=== PATIENT | female | born 1930 | race Caucasian/White ===

== ENCOUNTER 2017-06-08 22:18 | Emergency (ER) | payer OTHER, MEDICARE ==
[2017-06-08] MEDS ORDERED: NA CHLORIDE 0.9% 1,000 ML ONE (23:21)
[2017-06-08] MEDS ORDERED: ONDANSETRON 4 MG/2 ML VIAL ONE (23:21)
[2017-06-08 23:32] LABS: Absolute Lymphocytes (CBC) 0.5 K/uL (0.7-4.9); Absolute Monocytes 0.8 K/uL (0.1-1.3); Absolute Neutrophil 7.1 K/uL (1.8-8.0); Basophils % 0.2 % (0-1.3); Eosinophils % 4.5 % (0-4.4); Hematocrit 34.7 % (36.0-45.0); MCH 30.3 pg (27.0-35.0); MCV 91.3 fL (80-100); Monocytes % 9.4 % (3.3-12.3)
[2017-06-08 23:47] LABS: Bicarbonate 25 mEq/L (21-31); Glucose Level 96 mg/dL (65-120); Lipase 16 U/L (22-51); Potassium 3.7 mEq/L (3.6-5.0); Sodium Level 132 mEq/L (135-145)
[2017-06-08 23:53] LABS: ALT/SGPT 13 IU/L (10-60); AST/SGOT 21 IU/L (10-42); Albumin 3.9 g/dL (3.2-5.5); Alkaline Phosphatase 49 IU/L (42-121); Amylase Level 21 U/L (28-100); BUN Blood Urea Nitrogen 15 mg/dL (6-20); Bilirubin Direct 0.1 mg/dL (0-0.2); Bilirubin Total 0.8 mg/dL (0.3-1.2); Protein, Total 6.9 g/dL (6.0-8.3)
--- NOTE | 2017-06-09 01:14 | ER ---
Nurse's Notes [facility] Name: Jaquelin Chiu Age: 87 yrs Sex: Female : 1930 Arrival Date: 06/08/2017 Time: 22:19 Bed 14 Private MD: Jose Vera H Diagnosis: Nausea;Diarrhea, unspecified Presentation: 06/08 22:51 Presenting complaint: Patient states: she has been having N/V/D since 0800 this am. aa1 Reports she also finished taking a course of Levaquin today for a UTI. Denies pain. Transition of care: patient was not received from another setting of care. Onset of symptoms was June 08, 2017 at 08:00. Care prior to arrival: None. 22:51 Method Of Arrival: Ambulatory aa1 22:51 Acuity: KALLI 3 aa1 Historical: - Allergies: 22:57 PENICILLINS; aa1 - Home Meds: 22:57 amlodipine 5 mg tab 1 tab once daily [Active]; aspirin 81 mg Oral TbEC 1 tab once daily aa1 [Active]; Benefiber Sugar Free (dextrin) 1 gram Oral chew twice a day [Active]; Caltrate 600 + D 600 mg (1,500 mg)-800 unit Oral chew twice a day [Active]; carvedilol 25 mg Oral tab 1 tab 2 times per day [Active]; docusate sodium 100 mg Oral cap 1 cap 2 times per day [Active]; Flonase 50 mcg/actuation Nasal spsn 1 spray 2 times per day [Active]; isosorbide mononitrate 60 mg Oral Tb24 1 tab once daily [Active]; Lantus 100 unit/mL Sub-Q soln 25 unit twice a day [Active]; metformin 1,000 mg Oral tab 1 tab 2 times per day [Active]; Miralax 17 gram Oral pwpk twice a day [Active]; Ocuvite 910-15-5-150 eh-mkth-fy-mg Oral cap daily [Active]; omeprazole 40 mg Oral cpDR 1 cap once daily [Active]; potassium chloride 10 mEq Oral cpER 1 cap once daily [Active]; Probiotic Oral daily [Active]; simvastatin 20 mg Oral tab 1 tab nightly [Active]; Systane Vitamin [id number] on-bg-kc-unit Oral cap [Active]; valsartan hydrochlorithiazide 320 mg - 12.5 mg daily [Active]; Vitamin B-12 1,000 mcg Oral tab daily [Active]; Vitamin C 1,000 mg Oral TbER daily [Active]; - PMHx: 22:57 constipation; Diabetes - IDDM; High Cholesterol; Hypertension; aa1 - PSHx: 22:57 Tonsillectomy; Modified Mastectomy Left; Appendectomy; Cholecystectomy; Hysterectomy; aa1 Bilateral Total Knee; Laminectomy; - Immunization history:: Pneumococcal vaccine is up to date, Flu vaccine is up to date. - Social history:: Smoking status: Patient/guardian denies using tobacco, never smoked. Screenin:50 Abuse screen: Denies threats or abuse. Denies injuries from another. Nutritional aa1 screening: No deficits noted. Tuberculosis screening: No symptoms or risk factors identified. Fall Risk None identified. Assessment: 22:50 General: Appears in no apparent distress. comfortable, Behavior is calm, cooperative, aa1 appropriate for age. Pain: Denies pain. Neuro: Level of Consciousness is awake, alert, obeys commands, Oriented to person, place, time, situation, Moves all extremities. Full function Gait is steady, Speech is normal. Cardiovascular: Heart tones S1 S2 present Rhythm is regular. Respiratory: Airway is patent Respiratory effort is even, unlabored, Respiratory pattern is regular, symmetrical. GI: Abdomen is non-distended, Bowel sounds present X 4 quads. Abd is soft and non tender X 4 quads. Reports diarrhea, nausea, vomiting. : No signs and/or symptoms were reported regarding the genitourinary system. EENT: No signs and/or symptoms were reported regarding the EENT system. Derm: Skin is intact, is healthy with good turgor, Skin is pink, warm \T\ dry. Musculoskeletal: Circulation, motion, and sensation intact. Capillary refill < 3 seconds. 06/09 00:41 Reassessment: Patient appears in no apparent distress at this time. Patient and/or aa1 family updated on plan of care and expected duration. Pain level reassessed. Patient is alert, oriented x 3, equal unlabored respirations, skin warm/dry/pink. Awaiting provider reassessment. 01:28 Reassessment: Patient appears in no apparent distress at this time. Patient is alert, aa1 oriented x 3, equal unlabored respirations, skin warm/dry/pink. Discussed d/c \T\ f/u instructions with pt; denies questions or concerns at this time Patient denies pain at this time. Patient states feeling better. Vital Signs: 06/08 22:45 BP 129 / 61; Pulse 77; Resp 18; Temp 99.4(O); Pulse Ox 95% on R/A; Weight 87.54 kg; aa1 Height 5 ft. 5 in. (165.10 cm); Pain 0/10; 23:37 BP 148 / 59; Pulse 77; Resp 20; Pulse Ox 95% on R/A; Pain 0/10; aa1 06/09 00:30 BP 154 / 54; Pulse 74; Resp 20; Pulse Ox 95% on R/A; Pain 0/10; aa1 01:28 BP 133 / 73; Pulse 77; Resp 18; Temp 98.9; Pulse Ox 96% on R/A; Pain 0/10; aa1 06/08 22:45 Body Mass Index 32.12 (87.54 kg, 165.10 cm) aa1 ED Course: 06/08 22:19 Patient arrived in ED. am2 22:19 Jose Vera MD is Private Physician. am2 22:39 [facility] jr8 22:39 Kobi Denton MD is Attending Physician. jr8 22:45 Arm band placed on right wrist. Patient placed in an exam room, on a stretcher. aa1 22:50 Patient has correct armband on for positive identification. Placed in gown. Bed in low aa1 position. Call light in reach. Pulse ox on. NIBP on. Warm blanket given. 22:51 Ashely Almaguer, LINDA is Primary Nurse. aa1 22:52 Triage completed. aa1 23:10 Initial lab(s) drawn, by me, sent to lab. Inserted saline lock: 22 gauge in right aa1 wrist, using aseptic technique. Blood collected. 06/09 00:30 Assisted to bedside commode. aa1 01:14 Jose Vera MD is Referral Physician. jr8 01:28 No provider procedures requiring assistance completed. IV discontinued, intact, aa1 bleeding controlled, No redness/swelling at site. Pressure dressing applied. Administered Medications: 06/08 23:15 Drug: Zofran 4 mg Route: IVP; Site: right wrist; 06/09 01:27 Follow up: Response: No adverse reaction; Nausea is decreased 06/08 23:15 Drug: NS 0.9% 1000 ml Route: IV; Rate: 1 bolus; Site: right wrist; 06/09 00:00 Follow up: IV Status: Completed infusion aa1 Outcome: 01:14 Discharge ordered by jrRonel 01:28 Discharged to home via wheelchair, with friend. aa1 01:28 Condition: good 01:28 Discharge instructions given to patient, Instructed on discharge instructions, follow up and referral plans. medication usage, Demonstrated understanding of instructions, follow-up care, medications. 01:30 Patient left the ED. aa1 Addendum: 06/19/2017 09:27 Addendum: Culture Results: Positive urine culture. Patient was not prescribed d m5 antibiotics at discharge. Report given to ESCOBAR for further evaluation and then to occupational therapy instructor for follow up with patient. Phone call Attempt #1 pt is feeling better, followed up with PCP and was put on macrobid. Signatures: Melanie Linn, RN RN dm5 Ashely Almaguer RN RN aa1 Marcello Lloyd PA PA jr8 Tisha Jon am2
--- NOTE | 2017-06-09 01:14 | EDPHYS ---
Physician Documentation [facility] Name: Jaquelin Chiu Age: 87 yrs Sex: Female : 1930 Arrival Date: 06/08/2017 Time: 22:19 Bed 14 Private MD: Jose Vera H ED Physician Kobi Denton HPI: 06/09 00:09 This 87 yrs old Female presents to ER via Ambulatory with complaints of jr8 Nausea/Vomiting/Diarrhea. 00:09 The patient presents to the emergency department with nausea, vomiting, diarrhea. jr8 Onset: The symptoms/episode began/occurred acutely, today. Possible causes: antibiotics, quinolone, Levaquin. The symptoms are aggravated by nothing. The symptoms are alleviated by nothing. Associated signs and symptoms: The patient has no apparent associated signs or symptoms. Severity of symptoms: At their worst the symptoms were mild in the emergency department the symptoms are unchanged. The patient has not experienced similar symptoms in the past. The patient has been recently seen by a physician: with different complaint(s). Historical: - Allergies: 06/08 22:57 PENICILLINS; aa1 - Home Meds: 22:57 amlodipine 5 mg tab 1 tab once daily [Active]; aspirin 81 mg Oral TbEC 1 tab once daily aa1 [Active]; Benefiber Sugar Free (dextrin) 1 gram Oral chew twice a day [Active]; Caltrate 600 + D 600 mg (1,500 mg)-800 unit Oral chew twice a day [Active]; carvedilol 25 mg Oral tab 1 tab 2 times per day [Active]; docusate sodium 100 mg Oral cap 1 cap 2 times per day [Active]; Flonase 50 mcg/actuation Nasal spsn 1 spray 2 times per day [Active]; isosorbide mononitrate 60 mg Oral Tb24 1 tab once daily [Active]; Lantus 100 unit/mL Sub-Q soln 25 unit twice a day [Active]; metformin 1,000 mg Oral tab 1 tab 2 times per day [Active]; Miralax 17 gram Oral pwpk twice a day [Active]; Ocuvite 593-57-8-150 yi-lajm-uo-mg Oral cap daily [Active]; omeprazole 40 mg Oral cpDR 1 cap once daily [Active]; potassium chloride 10 mEq Oral cpER 1 cap once daily [Active]; Probiotic Oral daily [Active]; simvastatin 20 mg Oral tab 1 tab nightly [Active]; Systane Vitamin 806-277-123-5 sj-ry-yf-unit Oral cap [Active]; valsartan hydrochlorithiazide 320 mg - 12.5 mg daily [Active]; Vitamin B-12 1,000 mcg Oral tab daily [Active]; Vitamin C 1,000 mg Oral TbER daily [Active]; - PMHx: 22:57 constipation; Diabetes - IDDM; High Cholesterol; Hypertension; aa1 - PSHx: 22:57 Tonsillectomy; Modified Mastectomy Left; Appendectomy; Cholecystectomy; Hysterectomy; aa1 Bilateral Total Knee; Laminectomy; - Immunization history:: Pneumococcal vaccine is up to date, Flu vaccine is up to date. - Social history:: Smoking status: Patient/guardian denies using tobacco, never smoked. ROS: 06/09 00:09 Eyes: Negative for injury, pain, redness, and discharge, ENT: Negative for injury, jr8 pain, and discharge, Neck: Negative for injury, pain, and swelling, Cardiovascular: Negative for chest pain, palpitations, and edema, Respiratory: Negative for shortness of breath, cough, wheezing, and pleuritic chest pain, Back: Negative for injury and pain, MS/Extremity: Negative for injury and deformity, Skin: Negative for injury, rash, and discoloration, Neuro: Negative for headache, weakness, numbness, tingling, and seizure. Abdomen/GI: Positive for nausea, vomiting, and diarrhea, Negative for abdominal pain, abdominal distension, anorexia, dysphagia, hematemesis, black/tarry stool, rectal pain, rectal bleeding, bowel incontinence, flatulence. Exam: 00:09 Eyes: Pupils equal round and reactive to light, extra-ocular motions intact. Lids and jr8 lashes normal. Conjunctiva and sclera are non-icteric and not injected. Cornea within normal limits. Periorbital areas with no swelling, redness, or edema. ENT: Nares patent. No nasal discharge, no septal abnormalities noted. Tympanic membranes are normal and external auditory canals are clear. Oropharynx with no redness, swelling, or masses, exudates, or evidence of obstruction, uvula midline. Mucous membranes moist. Neck: Trachea midline, no thyromegaly or masses palpated, and no cervical lymphadenopathy. Supple, full range of motion without nuchal rigidity, or vertebral point tenderness. No Meningismus. Cardiovascular: Regular rate and rhythm with a normal S1 and S2. No gallops, murmurs, or rubs. Normal PMI, no JVD. No pulse deficits. Respiratory: Lungs have equal breath sounds bilaterally, clear to auscultation and percussion. No rales, rhonchi or wheezes noted. No increased work of breathing, no retractions or nasal flaring. Abdomen/GI: Soft, non-tender, with normal bowel sounds. No distension or tympany. No guarding or rebound. No evidence of tenderness throughout. Back: No spinal tenderness. No costovertebral tenderness. Full range of motion. Skin: Warm, dry with normal turgor. Normal color with no rashes, no lesions, and no evidence of cellulitis. MS/ Extremity: Pulses equal, no cyanosis. Neurovascular intact. Full, normal range of motion. Neuro: Awake and alert, GCS 15, oriented to person, place, time, and situation. Cranial nerves II-XII grossly intact. Motor strength 5/5 in all extremities. Sensory grossly intact. Cerebellar exam normal. Normal gait. Vital Signs: 06/08 22:45 BP 129 / 61; Pulse 77; Resp 18; Temp 99.4(O); Pulse Ox 95% on R/A; Weight 87.54 kg; aa1 Height 5 ft. 5 in. (165.10 cm); Pain 0/10; 23:37 BP 148 / 59; Pulse 77; Resp 20; Pulse Ox 95% on R/A; Pain 0/10; aa1 06/09 00:30 BP 154 / 54; Pulse 74; Resp 20; Pulse Ox 95% on R/A; Pain 0/10; aa1 01:28 BP 133 / 73; Pulse 77; Resp 18; Temp 98.9; Pulse Ox 96% on R/A; Pain 0/10; aa1 06/08 22:45 Body Mass Index 32.12 (87.54 kg, 165.10 cm) aa MDM: 06/08 22:39 Patient medically screened. jr8 06/09 01:13 Data reviewed: vital signs, nurses notes, lab test result(s), and as a result, I will jr8 discharge patient. Data interpreted: Pulse oximetry: on room air is 95 %. Interpretation: normal. Counseling: I had a detailed discussion with the patient and/or guardian regarding: the historical points, exam findings, and any diagnostic results supporting the discharge/admit diagnosis, lab results, the need for outpatient follow up, a family practitioner, to return to the emergency department if symptoms worsen or persist or if there are any questions or concerns that arise at home. ED course: Patient resting comfortably in exam room. No vomiting while here. Feels better after medication administration. Could not give stool sample here. To f/u with PCP tomorrow for diarrhea . 06/08 22:59 Order name: CBC with Diff; Complete Time: 23:53 aa1 06/08 22:59 Order name: Creatinine for Radiology; Complete Time: 23:53 aa1 06/08 22:59 Order name: Hepatic Function; Complete Time: 23:54 aa1 06/08 22:59 Order name: Lipase; Complete Time: 23:54 aa1 06/08 22:59 Order name: Urine Microscopic Only; Complete Time: 01:40 aa1 06/08 23:00 Order name: Amylase Level; Complete Time: 23:54 EDMS 06/08 23:00 Order name: Basic Metabolic Panel; Complete Time: 23:54 EDMS 06/09 00:58 Order name: Urine Dipstick--Ancillary (enter results); Complete Time: 01:40 [facility] 06/09 01:24 Order name: Urine Culture; Complete Time: 08:43 EDMS 06/08 22:59 Order name: IV Saline Lock; Complete Time: 23:37 aa1 06/08 22:59 Order name: Labs collected and sent; Complete Time: 23:37 aa1 06/08 22:59 Order name: Urine Dipstick-Ancillary (obtain specimen); Complete Time: 01:27 aa1 Administered Medications: 06/08 23:15 Drug: Zofran 4 mg Route: IVP; Site: right wrist; aa1 06/09 01:27 Follow up: Response: No adverse reaction; Nausea is decreased aa1 06/08 23:15 Drug: NS 0.9% 1000 ml Route: IV; Rate: 1 bolus; Site: right wrist; aa1 06/09 00:00 Follow up: IV Status: Completed infusion aa1 Disposition: 02: Co-signature as Attending Physician, Kobi Denton MD. pkl Disposition: 06/09/17 01:14 Discharged to Home. Impression: Nausea, Diarrhea, unspecified. - Condition is Stable. - Discharge Instructions: Diarrhea, Nausea, Adult. - Medication Reconciliation Form, Thank You Letter, Antibiotic Education, Prescription Opioid Use form. - Follow up: Jose Vera MD; When: Tomorrow; Reason: Recheck today's complaints, Continuance of care, Re-evaluation by your physician. - Problem is new. - Symptoms have improved. Signatures: Dispatcher [employer] EDOR Kezia Soler, HEAD BATCHER-C HEAD BATCHER-CkAshely Shahid, RN RN aa1 Kobi Denton MD MD pkl Marcello Lloyd PA PA jr8
[2017-06-09 01:20] LABS: Urine Culture Reflex Order REFLEXED
[2017-06-09 01:21] LABS: Urine Bacteria 20-50 /HPF (<20); Urine RBC <5 /HPF (NONE SEEN)
[2017-06-09 01:24] LABS: Urine Blood NEGATIVE (NEG); Urine Glucose NEGATIVE (NEG); Urine Protein NEGATIVE (NEG); Urine pH 5.5 (5.0-7.0)
== END 2017-06-09 01:30 | disposition home or self-care (01) ==
LOC: ER 22:18
DX: R19.7 Diarrhea, unspecified (principal); I10 Essential (primary) hypertension; E11.9 Type 2 diabetes mellitus without complications; E78.00 Pure hypercholesterolemia, unspecified; Z79.82 Long term (current) use of aspirin; Z79.4 Long term (current) use of insulin; Z88.0 Allergy status to penicillin; Z90.13 Acquired absence of bilateral breasts and nipples
CPT/HCPCS: 36415; 80048; 80076; 82150; 83690; 85025; 87077; 87086; 87088; 87186; 96361; 96374; 99284; J2405; J7030; 81003; 81015

== ENCOUNTER 2018-03-29 12:27 | Observation (INO) | payer OTHER, MEDICARE ==
[2018-03-29 13:17] LABS: Absolute Lymphocytes (CBC) 1.9 K/uL (0.7-4.9); Absolute Monocytes 0.6 K/uL (0.1-1.3); Absolute Neutrophil 4.9 K/uL (1.8-8.0); Basophils % 0.7 % (0-1.3); Eosinophils % 2.1 % (0-4.4); Hematocrit 38.7 % (36.0-45.0); Lymphocytes % 24.8 % (15.3-44.8); Monocytes % 7.4 % (3.3-12.3); RBC Red Blood Cell Count 4.14 M/uL (3.86-4.86)
[2018-03-29 13:33] LABS: ALT/SGPT 20 U/L (12-78); AST/SGOT 25 U/L (15-37); Albumin 4.1 g/dL (3.4-5.0); Alkaline Phosphatase 62 U/L (45-117); BUN Blood Urea Nitrogen 10 mg/dL (7-18); Bicarbonate 27 mmol/L (21-32); Bilirubin Direct < 0.1 mg/dL (0-0.2); Bilirubin Total 0.5 mg/dL (0.2-1.0); Glucose Level 105 mg/dL (74-106); Magnesium 1.6 mg/dL (1.8-2.4); NT PRO-BNP 84 pg/mL (<450); Potassium 4.6 mmol/L (3.5-5.1); Sodium Level 139 mmol/L (136-145); Troponin (Emerg Dept Use Only) < 0.02 ng/mL (0.0-0.045)
--- NOTE | 2018-03-29 14:39 | RAD REPORT ---
EXAM DESCRIPTION: RAD - Chest Single View - 03/29/2018 2:18 pm CLINICAL HISTORY: Left-sided chest pain, left arm pain COMPARISON: May 2017 TECHNIQUE: AP portable chest image was obtained 1405 hours . FINDINGS: Interstitial fibrotic lung changes are present. Adjusting for portable technique and shall ow inspiration affects, lung markings are not substantially different. Medial right base opacificatio n is probably atelectasis. Patient's symptoms are noted in the left side. Heart size is upper normal to slightly enlarged. No vascular engorgement. No measurable pleural effu kei and no pneumothorax. No acute bony abnormality seen. No acute aortic finding. Surgical clips and left mastectomy changes are noted on the left. IMPRESSION: Chronic interstitial lung disease not substantially different from comparison.
--- NOTE | 2018-03-29 14:46 | ER ---
Nurse's Notes [facility] Name: Jaquelin Chiu Age: 88 yrs Sex: Female : 1930 Arrival Date: 03/29/2018 Time: 12:30 Bed 8 Private MD: Diagnosis: Chest pain, unspecified Presentation: 03/29 12:39 Presenting complaint: Patient states: Left side chest pain and arm pain upon waking aj this AM. Reports pain was not relived with heat. Transition of care: patient was not received from another setting of care. Onset of symptoms was March 29, 2018. Risk Assessment: Do you want to hurt yourself or someone else? Patient reports no desire to harm self or others. Initial Sepsis Screen: Does the patient meet any 2 criteria? No. Patient's initial sepsis screen is negative. Does the patient have a suspected source of infection? No. Patient's initial sepsis screen is negative. Care prior to arrival: None. 12:39 Method Of Arrival: Wheelchair aj 12:39 Acuity: KALLI 3 aj Triage Assessment: 12:42 General: Appears in no apparent distress. comfortable, Behavior is calm, cooperative, aj appropriate for age. Pain: Complains of pain in anterior aspect of left upper chest and left breast. Neuro: Level of Consciousness is awake, alert, obeys commands, Oriented to person, place, time, situation, Appropriate for age. Cardiovascular: Reports chest pain, Capillary refill < 3 seconds in bilateral fingers Patient's skin is warm and dry. Respiratory: Reports pain with respiration Airway is patent Respiratory effort is even, unlabored, Respiratory pattern is regular, symmetrical. Derm: Skin is intact, is healthy with good turgor, Skin is pink, warm \T\ dry. normal. Historical: - Allergies: 12:42 PENICILLINS; aj - Home Meds: 12:42 amlodipine 5 mg tab 1 tab once daily [Active]; aspirin 81 mg Oral TbEC 1 tab once daily aj [Active]; Benefiber Sugar Free (dextrin) 1 gram Oral chew twice a day [Active]; Caltrate 600 + D 600 mg (1,500 mg)-800 unit Oral chew twice a day [Active]; carvedilol 25 mg Oral tab 1 tab 2 times per day [Active]; docusate sodium 100 mg Oral cap 1 cap 2 times per day [Active]; Flonase 50 mcg/actuation Nasal spsn 1 spray 2 times per day [Active]; isosorbide mononitrate 60 mg Oral Tb24 1 tab once daily [Active]; Lantus 100 unit/mL Sub-Q soln 25 unit twice a day [Active]; Miralax 17 gram Oral pwpk twice a day [Active]; metformin 1,000 mg Oral tab 1 tab 2 times per day [Active]; Ocuvite 494-75-2-150 ux-wapv-ht-mg Oral cap daily [Active]; omeprazole 40 mg Oral cpDR 1 cap once daily [Active]; potassium chloride 10 mEq Oral cpER 1 cap once daily [Active]; simvastatin 20 mg Oral tab 1 tab nightly [Active]; Probiotic Oral daily [Active]; Systane Vitamin [id number] uf-rw-kg-unit Oral cap [Active]; Vitamin B-12 1,000 mcg Oral tab daily [Active]; Vitamin C 1,000 mg Oral TbER daily [Active]; - PMHx: 12:42 constipation; Diabetes - IDDM; High Cholesterol; Hypertension; aj - PSHx: 12:42 Tonsillectomy; Modified Mastectomy Left; Appendectomy; Cholecystectomy; Hysterectomy; aj Bilateral Total Knee; Laminectomy; - Immunization history:: Adult Immunizations up to date. - Social history:: Smoking status: Patient/guardian denies using tobacco. - Ebola Screening: : Patient negative for fever greater than or equal to 101.5 degrees Fahrenheit, and additional compatible Ebola Virus Disease symptoms Patient denies exposure to infectious person Patient denies travel to an Ebola-affected area in the 21 days before illness onset No symptoms or risks identified at this time. Screenin:45 Abuse screen: Denies threats or abuse. Denies injuries from another. Nutritional la1 screening: No deficits noted. Tuberculosis screening: No symptoms or risk factors identified. Fall Risk 12:45 Fall Risk IV access (20 points). Ambulatory Aid- Crutches/Cane/Walker (15 pts). ca1 Assessment: 12:45 General: Appears in no apparent distress. Behavior is calm, cooperative, appropriate la1 for age. Pain: Complains of pain in anterior aspect of left upper chest and left breast Pain radiates to left arm Pain currently is 7 out of 10 on a pain scale. Pain began 4 hours ago. Neuro: Level of Consciousness is awake, alert, obeys commands, Oriented to person, place, time, situation. Cardiovascular: Heart tones S1 S2 present Capillary refill < 3 seconds Patient's skin is warm and dry. Cardiovascular: Rhythm is sinus rhythm. Respiratory: Airway is patent Respiratory effort is even, unlabored, Respiratory pattern is regular, symmetrical, Breath sounds are clear bilaterally. GI: No signs and/or symptoms were reported involving the gastrointestinal system. : No signs and/or symptoms were reported regarding the genitourinary system. EENT: No signs and/or symptoms were reported regarding the EENT system. Derm: Derm: Skin is intact, Skin is pink, warm \T\ dry. Musculoskeletal: Circulation, motion, and sensation intact. Capillary refill < 3 seconds. 14:01 Reassessment: Patient appears in no apparent distress at this time. Patient and/or la1 family updated on plan of care and expected duration. Pain level reassessed. Patient is alert, oriented x 3, equal unlabored respirations, skin warm/dry/pink. 15:03 Reassessment: Patient appears in no apparent distress at this time. Patient and/or ca1 family updated on plan of care and expected duration. Pain level reassessed. Patient is alert, oriented x 3, equal unlabored respirations, skin warm/dry/pink. Awaiting room assignment. 15:52 Reassessment: Patient appears in no apparent distress at this time. Patient is alert, ca1 oriented x 3, equal unlabored respirations, skin warm/dry/pink. Vital Signs: 12:42 BP 101 / 66; Pulse 64; Resp 19; Temp 98.6; Pulse Ox 99% on R/A; Weight 84.46 kg; Height aj 5 ft. 5 in. (165.10 cm); 14:01 BP 136 / 58; Pulse 60; Resp 16; Pulse Ox 96% on R/A; la1 15:03 BP 146 / 60; Pulse 61; Resp 18; Pulse Ox 97% on R/A; ca1 12:42 Body Mass Index 30.98 (84.46 kg, 165.10 cm) ED Course: 12:30 Patient arrived in ED. mr 12:35 Froy Cherry MD is Attending Physician. tw4 12:40 Triage completed. aj 12:42 Arm band placed on left wrist. Patient placed in an exam room. aj 12:45 Patient has correct armband on for positive identification. Placed in gown. Bed in low la1 position. Call light in reach. Side rails up X2. bus company manager on. Pulse ox on. NIBP on. Warm blanket given. 12:45 Initial lab(s) drawn, by me, sent to lab. Inserted saline lock: 20 gauge in right la1 antecubital area, using aseptic technique. Blood collected. Patient maintains SpO2 saturation greater than 95% on room air. 12:46 Zurdo Cox, RN is Primary Nurse. bp 14:43 Callum Raymond DO is Hospitalizing Provider. tw4 15:05 No provider procedures requiring assistance completed. Patient admitted, IV remains in ca1 place. Administered Medications: No medications were administered Outcome: 14:44 Decision to Hospitalize by Provider. tw4 15:49 Admitted to Tele accompanied by tech, via wheelchair, room 420, with chart, Report ca1 called to Michelle Greenwood RN 15:49 Condition: stable 15:49 Instructed on the need for admit, Demonstrated understanding of instructions. 16:45 Patient left the ED. bp Signatures: Tisha Broussard, RN RN Jaquelin Leary mr Khoa, Johnny, RN RN la1 Zurdo Cox, RN RN Froy Swanson MD MD tw4 Lin Galaviz RN RN ca1
--- NOTE | 2018-03-29 14:46 | EDPHYS ---
Physician Documentation [facility] Name: Jaquelin Chiu Age: 88 yrs Sex: Female : 1930 Arrival Date: 03/29/2018 Time: 12:30 Bed 8 Private MD: ED Physician Froy Cherry HPI: 03/29 13:55 This 88 yrs old Female presents to ER via Wheelchair with complaints of Chest tw4 Pain, Breathing Difficulty, Arm Pain. 13:55 The patient or guardian reports chest pain that is located primarily in the anterior tw4 chest wall. Onset: today. The pain does not radiate. Associated signs and symptoms: The patient has no apparent associated signs or symptoms. The chest pain is described as dull. Duration: The patient or guardian reports a single episode. Modifying factors: The symptoms are alleviated by nothing. the symptoms are aggravated by nothing. Severity of pain: At its worst the pain was mild in the emergency department the pain is unchanged. The patient has not experienced similar symptoms in the past. Historical: - Allergies: 12:42 PENICILLINS; aj - Home Meds: 12:42 amlodipine 5 mg tab 1 tab once daily [Active]; aspirin 81 mg Oral TbEC 1 tab once daily aj [Active]; Benefiber Sugar Free (dextrin) 1 gram Oral chew twice a day [Active]; Caltrate 600 + D 600 mg (1,500 mg)-800 unit Oral chew twice a day [Active]; carvedilol 25 mg Oral tab 1 tab 2 times per day [Active]; docusate sodium 100 mg Oral cap 1 cap 2 times per day [Active]; Flonase 50 mcg/actuation Nasal spsn 1 spray 2 times per day [Active]; isosorbide mononitrate 60 mg Oral Tb24 1 tab once daily [Active]; Lantus 100 unit/mL Sub-Q soln 25 unit twice a day [Active]; Miralax 17 gram Oral pwpk twice a day [Active]; metformin 1,000 mg Oral tab 1 tab 2 times per day [Active]; Ocuvite [id number] ip-frak-pt-mg Oral cap daily [Active]; omeprazole 40 mg Oral cpDR 1 cap once daily [Active]; potassium chloride 10 mEq Oral cpER 1 cap once daily [Active]; simvastatin 20 mg Oral tab 1 tab nightly [Active]; Probiotic Oral daily [Active]; Systane Vitamin [id number] ui-jl-uj-unit Oral cap [Active]; Vitamin B-12 1,000 mcg Oral tab daily [Active]; Vitamin C 1,000 mg Oral TbER daily [Active]; - PMHx: 12:42 constipation; Diabetes - IDDM; High Cholesterol; Hypertension; aj - PSHx: 12:42 Tonsillectomy; Modified Mastectomy Left; Appendectomy; Cholecystectomy; Hysterectomy; aj Bilateral Total Knee; Laminectomy; - Immunization history:: Adult Immunizations up to date. - Social history:: Smoking status: Patient/guardian denies using tobacco. - Ebola Screening: : Patient negative for fever greater than or equal to 101.5 degrees Fahrenheit, and additional compatible Ebola Virus Disease symptoms Patient denies exposure to infectious person Patient denies travel to an Ebola-affected area in the 21 days before illness onset No symptoms or risks identified at this time. ROS: 14:01 Constitutional: Negative for fever, chills, and weight loss, ENT: Negative for injury, tw4 pain, and discharge, Neck: Negative for injury, pain, and swelling, Respiratory: Negative for shortness of breath, cough, wheezing, and pleuritic chest pain, Abdomen/GI: Negative for abdominal pain, nausea, vomiting, diarrhea, and constipation, MS/Extremity: Negative for injury and deformity, Skin: Negative for injury, rash, and discoloration, Neuro: Negative for headache, weakness, numbness, tingling, and seizure. 14:01 Cardiovascular: Positive for chest pain, Negative for edema, orthopnea, palpitations, paroxysmal nocturnal dyspnea, acute changes. Exam: 13:55 Constitutional: This is a well developed, well nourished patient who is awake, alert, tw4 and in no acute distress. Head/Face: Normocephalic, atraumatic. Respiratory: Lungs have equal breath sounds bilaterally, clear to auscultation and percussion. No rales, rhonchi or wheezes noted. No increased work of breathing, no retractions or nasal flaring. Abdomen/GI: Soft, non-tender, with normal bowel sounds. No distension or tympany. No guarding or rebound. No evidence of tenderness throughout. 13:55 Cardiovascular: Regular rate and rhythm with a normal S1 and S2. No gallops, murmurs, or rubs. Normal PMI, no JVD. No pulse deficits. Back: No spinal tenderness. No costovertebral tenderness. Full range of motion. MS/ Extremity: Pulses equal, no cyanosis. Neurovascular intact. Full, normal range of motion. Neuro: Awake and alert, GCS 15, oriented to person, place, time, and situation. Cranial nerves II-XII grossly intact. Motor strength 5/5 in all extremities. Sensory grossly intact. Cerebellar exam normal. Normal gait. 13:55 Cardiovascular: Rate: Vital Signs: 12:42 BP 101 / 66; Pulse 64; Resp 19; Temp 98.6; Pulse Ox 99% on R/A; Weight 84.46 kg; Height aj 5 ft. 5 in. (165.10 cm); 14:01 BP 136 / 58; Pulse 60; Resp 16; Pulse Ox 96% on R/A; la1 15:03 BP 146 / 60; Pulse 61; Resp 18; Pulse Ox 97% on R/A; ca1 12:42 Body Mass Index 30.98 (84.46 kg, 165.10 cm) aj MDM: 14:44 Patient medically screened. 03/29 12:36 Order name: Basic Metabolic Panel [facility] 03/29 12:36 Order name: CBC with Diff 4 03/29 12:36 Order name: LFT's 03/29 12:36 Order name: Magnesium 03/29 12:36 Order name: NT PRO-BNP [facility] 03/29 12:36 Order name: PT-INR 03/29 12:36 Order name: Troponin (emerg Dept Use Only) [facility] 03/29 12:36 Order name: D-Dimer 03/29 13:22 Order name: CBC with Automated Diff [facility] 03/29 13:34 Order name: Basic Metabolic Panel; Complete Time: 13:51 EDMS 03/29 13:51 Interpretation: Normal except: CRE 0.48. 03/29 13:34 Order name: Liver (Hepatic) Function; Complete Time: 13:51 EDMS 03/29 13:51 Interpretation: Normal except: GLOB 3.9. 03/29 13:34 Order name: Troponin (Emerg Dept Use Only); Complete Time: 13:51 EDMS 03/29 13:51 Interpretation: Within normal limits: TROPED < 0.02. tw4 03/29 13:34 Order name: NT PRO-BNP; Complete Time: 13:52 EDNJ 03/29 13:34 Order name: Magnesium; Complete Time: 13:51 EDNJ 03/29 13:51 Interpretation: Normal except: MG 1.6. tw4 03/29 12:36 Order name: XRAY Chest (1 view) tw 03/29 12:36 Order name: EKG; Complete Time: 12:37 tw4 03/29 12:36 Order name: Cardiac monitoring; Complete Time: 12:56 tw4 03/29 12:36 Order name: EKG - Nurse/Tech; Complete Time: 13:07 [facility] 03/29 12:36 Order name: IV Saline Lock; Complete Time: 13:07 [facility] 03/29 12:36 Order name: Labs collected and sent; Complete Time: 13:08 [facility] 03/29 12:36 Order name: O2 Per Protocol; Complete Time: 13:08 [facility] 03/29 12:36 Order name: O2 Sat Monitoring; Complete Time: 13:08 [facility] 03/29 13:36 Order name: Protime (+INR); Complete Time: 13:52 EDNJ 03/29 13:52 Interpretation: Within normal limits: PT 11.8. 03/29 13:36 Order name: D-Dimer; Complete Time: 13:52 EDNJ 03/29 13:52 Interpretation: Within normal limits: D-DIMER 479. [facility] 03/29 14:39 Order name: RAD [facility] Administered Medications: No medications were administered Disposition: 03/29/18 14:44 Hospitalization ordered by Callum Raymond for Observation. Preliminary diagnosis is Chest pain, unspecified. - Bed requested for Telemetry/MedSurg (observation). - Status is Observation. bp - Condition is Stable. - Problem is new. - Symptoms have improved. UTI on Admission? No Signatures: Dispatcher [employer] Tisha Sullivan RN RN aj Peltier, Brian, RN RN bp Wadley, Terrence, MD MD tw4 [place] [employer]: (The following items were deleted from the chart) 14: 13:55 Constitutional: Negative for fever, chills, and weight loss, Eyes: Negative for tw4 injury, pain, redness, and discharge, Cardiovascular: Negative for chest pain, palpitations, and edema, Respiratory: Negative for shortness of breath, cough, wheezing, and pleuritic chest pain, Abdomen/GI: Negative for abdominal pain, nausea, vomiting, diarrhea, and constipation, Back: Negative for injury and pain, Neuro: Negative for headache, weakness, numbness, tingling, and seizure, tw4 15:19 14:44 Hospitalization Ordered by Callum Raymond DO for Observation. Preliminary eb diagnosis is Chest pain, unspecified. Bed requested for Telemetry/MedSurg (observation). Status is Observation. Condition is Stable. Problem is new. Symptoms have improved. UTI on Admission? No. tw4 16:45 15:19 03/29/2018 14:44 Hospitalization Ordered by Callum Raymond DO for Observation. bp Preliminary diagnosis is Chest pain, unspecified. Bed requested for Telemetry/MedSurg (observation). Status is Observation. Condition is Stable. Problem is new. Symptoms have improved. UTI on Admission? No. eb
--- NOTE | 2018-03-29 14:57 | P.HP ---
Certification for Inpatient Patient admitted to: Observation With expected LOS: <2 Midnights Patient will require the following post-hospital care: None Practitioner: I am a practitioner with admitting privileges, knowledge of patient current condition, hospital course, and medical plan of care. Services: Services provided to patient in accordance with Admission requirements found in Title 42 Section 412.3 of the Code of Federal Regulations Patient History Date of Service: 03/29/18 Primary Care Provider: Carmen Baum NP; Cardiology-Dr. Jaeger Reason for admission: Chest pain History of Present Illness: 88-year-old female presented to the emergency room with chest pain. Patient reported chest pain to the left side. It would radiate to the left arm. Some shortness of breath noted. She also reported a cough. She denies any fever, chills. She drove herself to the ER for further evaluation. Patient with history of CHF, hypertension, diabetes, GERD and arthritis. She further reports the patient was seen by Cardiology recently. About a month ago she was taken off losartan due to a chronic cough. Patient compliant with her medication. In the ER patient evaluated. Vital signs stable. EKG showed no significant EKG changes. Troponin unremarkable. CBC and BMP unremarkable. Chest x-ray appears stable. Patient admitted for observation. When I saw the patient ER, she appeared stable. She reported no pain. Patient does not drink or smoke. Allergies levofloxacin [From Levaquin] Allergy (Verified 09/09/15 21:30) Itching/Hives/Rash Penicillins Allergy (Verified 09/08/15 04:09) Unknown Quinolones Allergy (Verified 09/08/15 04:09) Unknown ampicillin Allergy (Uncoded 09/08/15 04:09) Unknown Home medications list reviewed: Yes Home Medications: Amlodipine Besylate 5 mg PO DAILY 09/08/15 Ascorbic Acid [Vitamin C*] 500 mg PO DAILY 09/08/15 Aspirin Chewable [Aspirin Chewable*] 81 mg PO DAILY 09/08/15 B Complex with Vitamin C [Vitamin B-Complex with Vit C] 1 each PO DAILY Carvedilol 25 mg PO BID 09/08/15 Cyanocobalamin (Vitamin B-12) [B-12] 1,000 mcg PO DAILY 09/08/15 Cyclobenzaprine HCl [Flexeril] 5 mg PO TID PRN 09/08/15 Diphenhydramine [Benadryl*] 25 mg PO BEDTIME 09/08/15 Docusate Sodium 100 mg PO DAILY 09/08/15 Insulin Detemir [Levemir] 30 units SQ BID 09/08/15 Isosorbide Mononitrate [Isosorbide Mononitrate ER] 60 mg PO DAILY 09/08/15 Lactobacillus Acidophilus [Acidophilus] 175 mg PO DAILY 09/08/15 Lansoprazole 15 mg PO DAILY 09/08/15 Montelukast Sodium [Singulair] 10 mg PO BEDTIME 09/08/15 Naproxen 500 mg PO BID 09/08/15 Polyethylene Glycol 3350 [Miralax] 17 gm PO DAILY 09/08/15 Polyvinyl Alcohol [Artificial Tears] 1 drop EACH EYE SEECOM 09/08/15 Potassium Chloride [Klor-Con M10] 10 meq PO DAILY 09/08/15 Propylene Glycol/Peg 400 [Systane 0.3-0.4% Eye Drops] 1 drop EACH EYE BID PRN Simvastatin 20 mg PO DAILY 09/08/15 Sitagliptin Phosphate [Januvia] 50 mg PO DAILY 09/08/15 Valsartan/Hydrochlorothiazide [Valsartan-Hctz 320-12.5 mg Tab] 1 tab PO DAILY Vit A,C & E/Lutein/Minerals [Ocuvite Tablet] 1 tab PO DAILY 09/08/15 Furosemide [Lasix*] 40 mg PO DAILY #5 tab 09/18/15 Magnesium Oxide [Mag 0X Tab] 400 mg PO BID #10 tab 09/18/15 - Past Medical/Surgical History Diabetic: Yes -: Hypertension -: Diabetes mellitus type 2, insulin dependent -: Diastolic CHF -: GERD -: Hyperlipidemia -: Chronic back pain -: Left mastectomy -: Bilateral knee replacement -: Tonsillectomy and adenoidectomy -: Hysterectomy -: Cholecystectomy -: Appendectomy -: Laminectomy lumbar region Psychosocial/ Personal History: Patient is single. She has never been . She has no children. - Family History Family History: Reviewed- Non-Contributory - Social History Smoking Status: Never smoker Alcohol use: No CD- Drugs: No Caffeine use: No Place of Residence: Home Review of Systems General: As per HPI Eyes: Unremarkable ENT: Unremarkable Respiratory: Cough, Shortness of Breath, As per HPI Cardiovascular: Chest Pain, As per HPI Gastrointestinal: Unremarkable Genitourinary: Unremarkable Musculoskeletal: Back Pain, As per HPI Integumentary: Unremarkable Neurological: Unremarkable Lymphatics: Unremarkable Physical Examination - Physical Exam General: Alert, In no apparent distress, Oriented x3, Cooperative HEENT: Atraumatic, Normocephalic, Mucous membr. moist/pink, EOMI Neck: Supple, No Thyromegaly Respiratory: Clear to auscultation bilaterally, Normal air movement Cardiovascular: Normal pulses, Regular rate/rhythm Gastrointestinal: Normal bowel sounds, Soft and benign, Non-distended, No tenderness, No masses, No rebound, No guarding Musculoskeletal: No erythema, No tenderness, No warmth Integumentary: No erythema, No warmth, No cyanosis, Tenderness/swelling ( Minimal lower extremity edema) Neurological: Normal speech, Normal strength at 5/5 x4 extr, Normal tone, Normal affect - Studies Laboratory Data (last 24 hrs) 03/29/18 13:02: PT 11.8, INR 1.00 03/29/18 13:02: WBC 7.6, Hgb 12.9, Hct 38.7, Plt Count 309 03/29/18 13:02: Sodium 139, Potassium 4.6, BUN 10, Creatinine 0.48 L, Glucose 105, Magnesium 1.6 L, Total Bilirubin 0.5, AST 25, ALT 20, Alkaline Phosphatase 62 Assessment and Plan - Plan Impression: Chest pain with mild shortness of breath Hypertension Diabetes mellitus type 2, insulin-dependent Hyperlipidemia Chronic diastolic CHF GERD Chronic back pain with arthritis Plan: Chest pain with mild shortness of breath: Patient will be admitted and observed. Will monitor cardiac enzymes. Will also obtain echocardiogram to further evaluate her CHF. Cardiology consulted to further assess. Will keep the patient NPO after midnight as the patient may require cardiac evaluation. Will discuss with cardiology. Hypertension: Will continue with her medications of Norvasc 5 mg daily and carvedilol 25 mg 1 pill twice daily. Patient reports losartan/ hydrochlorothiazide discontinued recently for chronic cough. Diabetes mellitus type 2, insulin-dependent: Will restart her basal insulin- Lantus at a lower dose. Will provide insulin sliding scale. Hyperlipidemia: Will continue with her medication-Zocor 20 mg. Will check fasting lipid panel. Chronic diastolic CHF: Will continue with Lasix 20 mg daily. Will obtain echocardiogram. GERD: Will provide PPI. Chronic back pain with arthritis: Patient uses a walker at home. Will provide medication as needed for pain. Discharge Plan: Home Plan to discharge in: 24 Hours - Advance Directives Does patient have a Living Will: No Does patient have a Durable POA for Healthcare: No - Code Status/Comfort Care Code Status Assessed: Yes (Patient is DNR) Time Spent Managing Pts Care (In Minutes): 55
[2018-03-29] MEDS ORDERED: D50W 25 GM/50 ML SYRINGE IV PRN (15:53)
[2018-03-29] MEDS ORDERED: ONDANSETRON 4 MG/2 ML VIAL IV PRN (15:53)
[2018-03-29] MEDS ORDERED: TRAMADOL HCL 50 MG TAB PO PRN (15:53)
[2018-03-29] MEDS ORDERED: ACETAMINOPHEN 500 MG TAB PO PRN (15:53)
[2018-03-29] MEDS ORDERED: MORPHINE 4 MG/ML SYR IV PRN (15:53)
[2018-03-29] MEDS ORDERED: NITROGLYCERIN 0.4 MG/TAB SL PRN (15:53)
[2018-03-29] MEDS ORDERED: GLUCAGON 1 MG/VIAL IM PRN (15:53)
[2018-03-29] MEDS: INSULIN -REGULAR HUMAN 50 UNIT/0.5 ML ML SQ SCH ×2 (16:30→22:22)
[2018-03-29 16:52] VITALS: BMI 30.9
[2018-03-29] MEDS ORDERED: ENOXAPARIN 40 MG/0.4 ML SQ SCH (18:00)
[2018-03-29] MEDS: CARVEDILOL 25 MG TAB PO SCH (18:04)
[2018-03-29] MEDS ORDERED: MAGNESIUM SULFATE 1 gm IVPB 1 GM/100 ML BAG IV ONE (21:00)
[2018-03-29] MEDS ORDERED: INSULIN GLARGINE 100 UNITS/ML SQ SCH (21:00)
[2018-03-29] MEDS ORDERED: ATORVASTATIN 10 MG TAB PO SCH (21:00)
[2018-03-29 21:19] LABS: CKMB Creatine Kinase MB 2.5 ng/mL (0.3-3.6); Creatine Phosphokinase 77 U/L (26-192); Troponin I < 0.02 ng/mL (0.0-0.045)
[2018-03-30 01:00] LABS: Urine Appearance CLOUDY; Urine Bilirubin NEGATIVE (NEG); Urine Blood NEGATIVE (NEG); Urine Color YELLOW; Urine Glucose TRACE (NEG); Urine Protein NEGATIVE (NEG); Urine Specific Gravity 1.015 (1.005-1.030); Urine Urobilinogen 0.2 mg/dL (0.2-1.0)
[2018-03-30 01:10] LABS: CKMB Creatine Kinase MB 2.2 ng/mL (0.3-3.6); Creatine Phosphokinase 78 U/L (26-192); Troponin I < 0.02 ng/mL (0.0-0.045)
[2018-03-30 01:11] LABS: Urine Microscopic Reflex ORDER UMIC
[2018-03-30 01:22] LABS: Urine Culture Reflex Order REFLEXED
[2018-03-30 01:25] LABS: Urine Bacteria >50 /HPF (<20); Urine RBC <5 /HPF (NONE SEEN)
[2018-03-30 05:05] LABS: Absolute Lymphocytes (CBC) 2.1 K/uL (0.7-4.9); Absolute Monocytes 0.7 K/uL (0.1-1.3); Absolute Neutrophil 3.7 K/uL (1.8-8.0); Eosinophils % 3.4 % (0-4.4); Hematocrit 34.9 % (36.0-45.0); Lymphocytes % 30.6 % (15.3-44.8); MPV 9.1 fL (7.6-11.3); Monocytes % 10.7 % (3.3-12.3); RBC Red Blood Cell Count 3.76 M/uL (3.86-4.86)
[2018-03-30] MEDS: CARVEDILOL 25 MG TAB PO SCH (05:17)
[2018-03-30 05:24] LABS: BUN Blood Urea Nitrogen 11 mg/dL (7-18); Bicarbonate 28 mmol/L (21-32); Glucose Level 65 mg/dL (74-106); HDL Cholesterol 41 mg/dL (40-60); LDL Cholesterol, Calculated 30 (<130); Magnesium 1.8 mg/dL (1.8-2.4); Potassium 3.5 mmol/L (3.5-5.1); Sodium Level 139 mmol/L (136-145)
[2018-03-30] MEDS ORDERED: MAGNESIUM SULFATE 1 gm IVPB 1 GM/100 ML BAG IV ONE (05:36)
[2018-03-30] MEDS ORDERED: PANTOPRAZOLE 40MG TABLET PO SCH (06:30)
[2018-03-30] MEDS: INSULIN -REGULAR HUMAN 50 UNIT/0.5 ML ML SQ SCH ×3 (07:30→15:41)
[2018-03-30] MEDS ORDERED: ISOSORBIDE MONO SR 60 MG TAB PO SCH (09:00)
[2018-03-30] MEDS ORDERED: FUROSEMIDE 20 MG TABLET PO SCH (09:00)
[2018-03-30] MEDS ORDERED: AMLODIPINE 5 MG TAB PO SCH (09:00)
[2018-03-30] MEDS ORDERED: ASPIRIN EC 81 MG TAB PO SCH (09:00)
--- NOTE | 2018-03-30 09:32 | P.DS ---
Admission Date: 03/29/18 Discharge Date: 03/30/18 Primary Care Provider: Carmen Baum NP; Cardiology-Dr. Jaeger Disposition: ROUTINE DISCHARGE Discharge Condition: GOOD Reason for Admission: Chest pain Consultations: Cardiology-Dr. Tuttle Procedures: ECHO: results pending at discharge CXR: COMPARISON: May 2017 TECHNIQUE: AP portable chest image was obtained 1405 hours . FINDINGS: Interstitial fibrotic lung changes are present. Adjusting for portable technique and shallow inspiration affects, lung markings are not substantially different. Medial right base opacification is probably atelectasis. Patient's symptoms are noted in the left side. Heart size is upper normal to slightly enlarged. No vascular engorgement. No measurable pleural effusion and no pneumothorax. No acute bony abnormality seen. No acute aortic finding. Surgical clips and left mastectomy changes are noted on the left. IMPRESSION: Chronic interstitial lung disease not substantially different from comparison. Medical Problem List: Chest pain with mild shortness of breath Hypertension Diabetes mellitus type 2, insulin-dependent Hyperlipidemia Chronic diastolic CHF GERD Chronic back pain with arthritis Chronic sinusitis Brief History of Present Illness: 88-year-old female presented to the emergency room with chest pain. Patient reported chest pain to the left side. It would radiate to the left arm. Some shortness of breath noted. She also reported a cough. She denies any fever, chills. She drove herself to the ER for further evaluation. Patient with history of CHF, hypertension, diabetes, GERD and arthritis. She further reports the patient was seen by Cardiology recently. About a month ago she was taken off losartan due to a chronic cough. Patient compliant with her medication. In the ER patient evaluated. Vital signs stable. EKG showed no significant EKG changes. Troponin unremarkable. CBC and BMP unremarkable. Chest x-ray appears stable. Patient admitted for observation. When I saw the patient ER, she appeared stable. She reported no pain. Patient does not drink or smoke. Hospital Course: The patient presented with chest pain and mild shortness of breath. Patient with history of chronic diastolic CHF, hypertension and diabetes. Patient was observed. Cardiac enzymes unremarkable. Chest pain resolved. Magnesium level was slightly low and replaced. Patient seen by Cardiology. No cardiac intervention was required. Echocardiogram was done. Results pending at discharge. No changes recommended at this time. Patient will continue with aspirin 81 mg daily, Imdur 60 mg daily. Patient will increase magnesium in her diet. Patient will follow up with cardiology in 1-2 weeks to follow up this hospitalization. Patient has diabetes mellitus type 2. She is insulin dependent. Patient will continue with her basal insulin-Lantus 22 units subcu every a.m. and 18 units subcu every p.m.. Patient also has sliding scale. Recommendation is to maintain blood sugars less than 140 fasting and less than 200 after meals. Further adjustment can be done by her PCP. Patient has hyperlipidemia. She will continue with Zocor 20 mg daily. Patient has hypertension. This remained stable. Patient will continue with Norvasc 5 mg daily and carvedilol 25 mg 1 pill twice daily. Recommend to maintain blood pressures less 150/80. Further adjustment can be done by her PCP. Patient with history of chronic diastolic CHF. Echocardiogram obtained. Patient will continue with a 1500 cc per day fluid restriction and low-salt diet. Patient will continue with Lasix 40 mg every other day along with potassium supplementation. Further adjustment can be done by cardiology. Patient has GERD. She will continue with her medication-Prilosec 40 mg daily. Patient with chronic back pain and arthritis. Patient uses a walker at home. She remains independent. Patient may use Tylenol as needed for pain. Fall precautions addressed. Patient with chronic sinusitis. Patient will continue with Flonase 1 spray per nostril twice daily and Singulair 5 mg daily Vital Signs/Physical Exam: Temp Pulse Resp BP Pulse Ox 97.1 F 60 16 134/61 93 03/30/18 08:00 03/30/18 08:00 03/30/18 08:00 03/30/18 08:00 03/30/18 08:00 General: Alert, In no apparent distress, Oriented x3, Cooperative HEENT: Atraumatic Neck: Supple Respiratory: Clear to auscultation bilaterally, Normal air movement Cardiovascular: Normal pulses, Regular rate/rhythm Gastrointestinal: Normal bowel sounds, Soft and benign, Non-distended, No tenderness, No masses, No rebound, No guarding Musculoskeletal: No erythema, No tenderness, No warmth Integumentary: No tenderness/swelling, No erythema, No warmth, No cyanosis Neurological: Normal speech, Normal strength at 5/5 x4 extr, Normal tone, Normal affect Laboratory Data at Discharge: WBC 6.7 K/uL (4.3-10.9) 03/30/18 04:40 Hgb 11.5 g/dL (12.0-15.0) L 03/30/18 04:40 Hct 34.9 % (36.0-45.0) L 03/30/18 04:40 Plt Count 276 K/uL (152-406) 03/30/18 04:40 PT 11.8 SECONDS (9.5-12.5) 03/29/18 13:02 INR 1.00 03/29/18 13:02 Sodium 139 mmol/L (136-145) 03/30/18 04:40 Potassium 3.5 mmol/L (3.5-5.1) 03/30/18 04:40 BUN 11 mg/dL (7-18) 03/30/18 04:40 Creatinine 0.45 mg/dL (0.55-1.3) L 03/30/18 04:40 Glucose 65 mg/dL (74-106) L 03/30/18 04:40 Magnesium 1.8 mg/dL (1.8-2.4) 03/30/18 04:40 Total Bilirubin 0.5 mg/dL (0.2-1.0) 03/29/18 13:02 AST 25 U/L (15-37) 03/29/18 13:02 ALT 20 U/L (12-78) 03/29/18 13:02 Alkaline Phosphatase 62 U/L (45-117) 03/29/18 13:02 Troponin I < 0.02 ng/mL (0.0-0.045) 03/30/18 00:40 Triglycerides 160 mg/dL (<150) H 03/30/18 04:40 Cholesterol 103 mg/dL (<200) 03/30/18 04:40 HDL Cholesterol 41 mg/dL (40-60) 03/30/18 04:40 Cholesterol/HDL Ratio 2.51 03/30/18 04:40 Home Medications: Amlodipine [Norvasc*] 5 mg PO DAILY 03/29/18 Ascorbic Acid [Vitamin C] 1 tab PO DAILY 03/29/18 Aspirin [Adult Aspirin] 81 mg PO DAILY 03/29/18 Calcium Carbonate/Vitamin D3 [Caltrate 600 + D Soft Chew Tab] 1 tab PO BID 03/29 Carvedilol 25 mg PO BID 03/29/18 Cyanocobalamin [Vitamin B-12*] 1 tab PO DAILY 03/29/18 Diphenhydramine [Benadryl*] 25 mg PO BEDTIME 03/29/18 Docusate Sodium 1 cap PO BID 03/29/18 Fluticasone [Flonase 50MCG Nasal [place]*] 1 spray NS BID 03/29/18 Furosemide [Lasix] 1 tab PO SEECOM 03/29/18 Insulin Glargine,Hum.rec.anlog [Lantus] 18 units SQ BEDTIME 03/29/18 Insulin Glargine,Hum.rec.anlog [Lantus] 22 units SQ BREAKFAST 03/29/18 Isosorbide Mononitrate [Isosorbide Mononitrate ER] 60 mg PO DAILY 03/29/18 Lactobacillus Acidophilus [Probiotic] 1 tab-cap PO DAILY 03/29/18 Metformin HCl 1,000 mg PO BID 03/29/18 Montelukast [Singulair*] 5 mg PO BEDTIME 03/29/18 Omeprazole [Prilosec] 40 mg PO DAILY 03/29/18 Polyethylene Glycol 3350 [Miralax] 1 packet PO BEDTIME 03/29/18 Potassium Chloride [Klor-Con 10] 10 meq PO DAILY 03/29/18 Simvastatin 20 mg PO BEDTIME 03/29/18 Vit A,C & E/Lutein/Minerals [Ocuvite Tablet] 1 tab PO DAILY 03/29/18 Wheat Dextrin [Benefiber] 2 tsp PO BEDTIME 03/29/18 Patient Discharge Instructions: 1. Patient will follow up with her PCP in 1 week to follow up this hospitalization. 2. The patient presented with chest pain and mild shortness of breath. Patient with history of chronic diastolic CHF, hypertension and diabetes. Patient was observed. Cardiac enzymes unremarkable. Chest pain resolved. Magnesium level was slightly low and replaced. Patient seen by Cardiology. No cardiac intervention was required. Echocardiogram was done. Results pending at discharge. No changes recommended at this time. Patient will continue with aspirin 81 mg daily, Imdur 60 mg daily. Patient will increase magnesium in her diet. Patient will follow up with cardiology in 1-2 weeks to follow up this hospitalization. 3. Patient has diabetes mellitus type 2. She is insulin dependent. Patient will continue with her basal insulin-Lantus 22 units subcu every a.m. and 18 units subcu every p.m.. Patient also has sliding scale. Recommendation is to maintain blood sugars less than 140 fasting and less than 200 after meals. Further adjustment can be done by her PCP. 4. Patient has hyperlipidemia. She will continue with Zocor 20 mg daily. 5. Patient has hypertension. This remained stable. Patient will continue with Norvasc 5 mg daily and carvedilol 25 mg 1 pill twice daily. Recommend to maintain blood pressures less 150/80. Further adjustment can be done by her PCP. 6. Patient with history of chronic diastolic CHF. Echocardiogram obtained. Patient will continue with a 1500 cc per day fluid restriction and low-salt diet. Patient will continue with Lasix 40 mg every other day along with potassium supplementation. Further adjustment can be done by cardiology. 7. Patient has GERD. She will continue with her medication-Prilosec 40 mg daily. 8. Patient with chronic back pain and arthritis. Patient uses a walker at home. She remains independent. Patient may use Tylenol as needed for pain. Fall precautions addressed. 9. Patient with chronic sinusitis. Patient will continue with Flonase 1 spray per nostril twice daily and Singulair 5 mg daily Diet: AHA Activity: Fall precautions Time spent managing pt's care (in minutes): 55
--- NOTE | 2018-03-30 11:48 | EKG ---
Test Date: 2018-03-29 Test Time: 12:49:21 [employer] Officer: STEVAN MEASUREMENT RESULTS: Intervals: Rate: 62 OK: 170 QRSD: 88 QT: 452 QTc: 458 [place]: P: 13 OK: 170 QRS: 17 T: 39 INTERPRETIVE STATEMENTS: Normal sinus rhythm Normal ECG Compared to ECG 09/07/2015 15:40:35 Myocardial infarct finding no longer present Electronically Signed On 03-30-18 11:43:13 [employer] by Milan Tuttle
--- NOTE | 2018-03-30 12:11 | ECHO ---
HEIGHT: 5 ft 5 in WEIGHT: 186 lb 2 oz DATE OF STUDY: ;03/30/[address]: Callum Raymond DO 2-DIMENSIONAL: YES M.MODE: YES DOPPLER: YES COLOR FLOW: YES TDS: NO PORTABLE: NO DEFINITY: NO BUBBLE STUDY: NO DIAGNOSIS: CHEST PAIN CARDIAC HISTORY: CATHERIZATION: NO SURGERY: NO PROSTHETIC VALVE: NO PACEMAKER: NO MEASUREMENTS (cm) DIASTOLIC (NORMALS) SYSTOLIC (NORMALS) IVSd 1.5 (0.6-1.2) LA Diam 3.7 (1.9-4.0) LVEF 77% LVIDd 2.3 (3.5-5.7) LVIDs 1.3 (2.0-3.5) %FS 43% LVPWd 1.3 (0.6-1.2) Ao Diam 2.8 (2.0-3.7) 2 DIMENSIONAL ASSESSMENT: RIGHT ATRIUM: NORMAL LEFT ATRIUM: NORMAL RIGHT VENTRICLE: NORMAL LEFT VENTRICLE: LEFT VENTRICULAR HYPERTROPHY TRICUSPID VALVE: NORMAL MITRAL VALVE: MITRAL ANNULAR CALCIFICATION PULMONIC VALVE: NORMAL AORTIC VALVE: STENOTIC PERICARDIAL EFFUSION: NONE AORTIC ROOT: NORMAL LEFT VENTRICULAR WALL MOTION: NORMAL. DOPPLER/COLOR FLOW: MILD AORTIC STENOSIS AREA 1.6 CENTIMTERS SQUARED. COMMENTS: MILD AORTIC STENOSIS AREA 1.6 CENTIMETERS SQUARED. MITRAL ANNULAR CALCIFICATION. NORMAL LEFT VENTRICULAR FUNCTION. LEFT VENTRICULAR HYPERTROPHY TECHNOLOGIST: MAGALY BORGES
[2018-03-30 16:35] VITALS: BP 135/61; TEMP 98.2
[2018-03-30 17:06] VITALS: O2SAT 96
[2018-03-30] MEDS ORDERED: ATORVASTATIN 20 MG TAB PO SCH (21:00)
[2018-03-30] MEDS ORDERED: INSULIN GLARGINE 100 UNITS/ML SQ SCH (21:00)
--- NOTE | 2018-03-31 06:21 | CON ---
Date of Consultation: 03/30/2018 Reason For Consultation: Atypical chest pain, hypertension, and shortness of breath. History Of Present Illness: The patient is an 88-year-old woman who has a history of diabetes, dysli pidemia, hypertension, gastroesophageal reflux disease. According to her, never really had any cardi ac history. Came in with arm pain on the left side that is constant from the neck down to her arm fo r about 48 hours. Had some sharp chest pain in the left upper shoulder. She was hypertensive. Has had some dyspnea on exertion recently. Denies nausea, vomiting, diaphoresis, PND, orthopnea, pedal e carlos, or syncope. She denied any palpitations. Past Medical History: As stated above. Allergies: SHE IS ALLERGIC TO PENICILLIN AND LEVAQUIN. Review of Systems: Positive for being a DNR. Social History: Negative. Family History: Noncontributory. Medications: At home include Norvasc, aspirin, Imdur, insulin, metformin, Protonix, and Zocor. Physical Examination: General: She appeared her stated age. No acute distress. Pleasant. Sinus rhythm. Vital Signs: Stable, afebrile. HEENT: Negative. Neck: Supple without any bruit, lymphadenopathy, JVD, or thyromegaly. Chest: Clear to auscultation and percussion. Cardiac: Revealed a regular rhythm and rate S4 gallops. No murmurs or rubs. Abdomen: Benign. Extremities: Revealed no clubbing, cyanosis, or edema. Neurological: She was intact, nonfocal. Skin: Dry and intact. She had positive pulses in dorsalis pedis and posterior tibial bilaterally. Diagnostic Data: Negative except for the chest x-ray showing chronic interstitial lung disease. Impression And Plan: 1.Left arm pain, most likely secondary to cervical spondylosis. 2.Chest pains, possibly secondary to hypertension, and she certainly could have coronary artery dise ase as well. She has had some dyspnea on exertion. I think an echocardiogram is reasonable. She is a DNR. I do not want do any invasive cardiac workup on her. One option will be to increase her Imd ur or start her on low-dose beta sumit if her symptoms persist. Her diabetes, cholesterol, and hyp ertension seem to be better controlled now. She also has gastroesophageal reflux disease, on Protoni x. I will see what the echocardiogram shows. I will discuss the case further with Dr. Raymond, and I am comfortable with her going home today. LI/GAL Voice ID: [id number] Report ID: [id number]
== END 2018-03-30 17:35 | disposition home or self-care (01) ==
LOC: ER 12:27 → ERHOLD 14:51 → 4TH 15:52
PROVIDERS: ADMIT Family Medicine; ATTEND Family Medicine
DX: R07.9 Chest pain, unspecified (principal); R06.02 Shortness of breath; I11.0 Hypertensive heart disease with heart failure; I50.32 Chronic diastolic (congestive) heart failure; E11.9 Type 2 diabetes mellitus without complications; E78.5 Hyperlipidemia, unspecified; K21.9 Gastro-esophageal reflux disease without esophagitis; M54.9 Dorsalgia, unspecified; J32.9 Chronic sinusitis, unspecified; M19.90 Unspecified osteoarthritis, unspecified site; Z88.0 Allergy status to penicillin; Z96.653 Presence of artificial knee joint, bilateral
CPT/HCPCS: 36415; 71045; 80048 ×2; 80061; 80076; 82550 ×2; 82553 ×2; 82962 ×6; 83735 ×2; 83880; 84439; 84443; 84484 ×3; 85025 ×2; 85379; 85610; 87077; 87086; 87088; 87186; 93005; 93306; G0378 ×2; J1650; J3475 ×2; 81003; 81015

== ENCOUNTER 2018-05-14 13:37 | Emergency (ER) | payer OTHER, MEDICARE ==
[2018-05-14] MEDS ORDERED: IBUPROFEN 400 MG TAB ONE (15:14)
--- NOTE | 2018-05-14 16:59 | ER ---
Nurse's Notes [facility] Name: Jaquelin Chiu Age: 88 yrs Sex: Female : 1930 Arrival Date: 05/14/2018 Time: 13:40 Bed 11 Private MD: Diagnosis: Contusion of left shoulder;Contusion of left knee;Contusion Left Rib Area, Contusion Chin Presentation: 05/14 13:53 Presenting complaint: Patient states: tripped over a rug at [facility], fell forward, hitting iw her jaw on ground, laceration noted to inside of bottom lip, also fell to left knee, denies LOC, denies any other injury. Care prior to arrival: None. Mechanism of Injury: Fall from standing position. Trauma event details: Injury occurred in the [facility], Injury occurred: in a public building. Injury occurred: May 14, 2018. 13:53 Acuity: KALLI 4 iw 13:53 Method Of Arrival: EMS: [facility] iw 14:00 Transition of care: patient was not received from another setting of care. Onset of iw symptoms was May 14, 2018. Risk Assessment: Do you want to hurt yourself or someone else? Patient reports no desire to harm self or others. Initial Sepsis Screen: Does the patient meet any 2 criteria? No. Patient's initial sepsis screen is negative. Does the patient have a suspected source of infection? No. Patient's initial sepsis screen is negative. 14:00 Onset of symptoms was May 14, 2018 at 19:32. iw Triage Assessment: 14:00 General: Appears in no apparent distress. Behavior is calm, cooperative. Pain: iw Complains of pain in left arm and left knee. Trauma Activation: Not Applicable Physician: ED Physician; Name: ; Notified At: ; Arrived At: Physician: General Surgeon; Name: ; Notified At: ; Arrived At: Physician: Radiology; Name: ; Notified At: ; Arrived At: Physician: Respiratory; Name: ; Notified At: ; Arrived At: Physician: Lab; Name: ; Notified At: ; Arrived At: Historical: - Allergies: 13:56 PENICILLINS; iw - Home Meds: 13:56 amlodipine 5 mg tab 1 tab once daily [Active]; aspirin 81 mg Oral TbEC 1 tab once daily iw [Active]; Benefiber Sugar Free (dextrin) 1 gram Oral chew twice a day [Active]; Caltrate 600 + D 600 mg (1,500 mg)-800 unit Oral chew twice a day [Active]; carvedilol 25 mg Oral tab 1 tab 2 times per day [Active]; docusate sodium 100 mg Oral cap 1 cap 2 times per day [Active]; Flonase 50 mcg/actuation Nasal spsn 1 spray 2 times per day [Active]; isosorbide mononitrate 60 mg Oral Tb24 1 tab once daily [Active]; Lantus 100 unit/mL Sub-Q soln 25 unit twice a day [Active]; metformin 1,000 mg Oral tab 1 tab 2 times per day [Active]; Miralax 17 gram Oral pwpk twice a day [Active]; Ocuvite 245-14-2-150 rx-mnmm-co-mg Oral cap daily [Active]; omeprazole 40 mg Oral cpDR 1 cap once daily [Active]; potassium chloride 10 mEq Oral cpER 1 cap once daily [Active]; Probiotic Oral daily [Active]; simvastatin 20 mg Oral tab 1 tab nightly [Active]; Systane Vitamin 870-243-295-5 vq-tj-wn-unit Oral cap [Active]; valsartan hydrochlorithiazide 320 mg - 12.5 mg daily [Active]; Vitamin B-12 1,000 mcg Oral tab daily [Active]; Vitamin C 1,000 mg Oral TbER daily [Active]; - PMHx: 13:56 constipation; Diabetes - IDDM; High Cholesterol; Hypertension; iw - PSHx: 13:56 Tonsillectomy; Modified Mastectomy Left; Appendectomy; Cholecystectomy; Hysterectomy; iw Bilateral Total Knee; Laminectomy; - Immunization history:: Adult Immunizations up to date. - Social history:: Smoking status: Patient/guardian denies using tobacco. - Family history:: not pertinent. - Ebola Screening: : Patient negative for fever greater than or equal to 101.5 degrees Fahrenheit, and additional compatible Ebola Virus Disease symptoms Patient denies exposure to infectious person Patient denies travel to an Ebola-affected area in the 21 days before illness onset No symptoms or risks identified at this time. - Hospitalizations: : No recent hospitalization is reported. Screenin:24 Abuse screen: Denies threats or abuse. Denies injuries from another. Nutritional iw screening: No deficits noted. Tuberculosis screening: No symptoms or risk factors identified. Fall Risk Fall in past 12 months (25 points). Assessment: 15:00 Reassessment: Patient appears in no apparent distress at this time. Patient and/or iw family updated on plan of care and expected duration. Pain level reassessed. Patient is alert, oriented x 3, equal unlabored respirations, skin warm/dry/pink. pt to xray, sister at bedside. Vital Signs: 13:54 BP 138 / 66; Pulse 78; Resp 16; Pulse Ox 98% on R/A; iw ED Course: 13:40 Patient arrived in ED. iw 13:45 Diamond Baker FNP is PHCP. kav 13:45 Danny Almanza MD is Attending Physician. kakathy 13:53 Elsy Marc, RN is Primary Nurse. iw 13:54 Triage completed. iw 14:00 Arm band placed on. iw 14:00 Patient has correct armband on for positive identification. iw 15:24 No provider procedures requiring assistance completed. Patient did not have IV access iw during this emergency room visit. 16:21 Shoulder Left (2 View) XRAY In Process Unspecified. EDMS 16:21 Ribs Left XRAY In Process Unspecified. EDMS 16:21 Knee Left 3 View XRAY In Process Unspecified. EDMS 16:21 C Spine Ap/Lat In Process Unspecified. EDMS Administered Medications: 15:05 Drug: Ibuprofen 800 mg Route: PO; iw Outcome: 16:58 Discharge ordered by MD. kav 17:12 Discharged to home via wheelchair, with family. iw 17:12 Condition: good 17:12 Discharge instructions given to patient, family, Instructed on discharge instructions, follow up and referral plans. medication usage, Demonstrated understanding of instructions, follow-up care, medications, Prescriptions given X 1. 17:13 Patient left the ED. iw Signatures: Dispatcher [employer] EDMS Diamond Baker FNP FNP kav Williams, Irene, RN RN iw
--- NOTE | 2018-05-14 16:59 | EDPHYS ---
Physician Documentation [facility] Name: Jaquelin Chiu Age: 88 yrs Sex: Female : 1930 Arrival Date: 05/14/2018 Time: 13:40 Bed 11 Private MD: ED Physician Danny Almanza HPI: 05/14 13:45 This 88 yrs old Female presents to ER via Unassigned with complaints of Fall kav Injury. 16:50 Details of fall: The patient fell from a supine position, and struck a concrete kav surface. Onset: The symptoms/episode began/occurred acutely, just prior to arrival. Associated injuries: The patient sustained chin, painful injury, left knee, painful injury, anterior aspect of left shoulder, painful injury, anterior aspect of left lateral abdomen, painful injury. 16:50 Severity of symptoms: At their worst the symptoms were moderate, just prior to arrival. kav Patient reports rib pain since March 2018. Patient reports tripping on carpet at flower stand at store and hit her chin, left shoulder, left rib area and left knee. Historical: - Allergies: 13:56 PENICILLINS; iw - Home Meds: 13:56 amlodipine 5 mg tab 1 tab once daily [Active]; aspirin 81 mg Oral TbEC 1 tab once daily iw [Active]; Benefiber Sugar Free (dextrin) 1 gram Oral chew twice a day [Active]; Caltrate 600 + D 600 mg (1,500 mg)-800 unit Oral chew twice a day [Active]; carvedilol 25 mg Oral tab 1 tab 2 times per day [Active]; docusate sodium 100 mg Oral cap 1 cap 2 times per day [Active]; Flonase 50 mcg/actuation Nasal spsn 1 spray 2 times per day [Active]; isosorbide mononitrate 60 mg Oral Tb24 1 tab once daily [Active]; Lantus 100 unit/mL Sub-Q soln 25 unit twice a day [Active]; metformin 1,000 mg Oral tab 1 tab 2 times per day [Active]; Miralax 17 gram Oral pwpk twice a day [Active]; Ocuvite 291-83-6-150 dq-iwub-mx-mg Oral cap daily [Active]; omeprazole 40 mg Oral cpDR 1 cap once daily [Active]; potassium chloride 10 mEq Oral cpER 1 cap once daily [Active]; Probiotic Oral daily [Active]; simvastatin 20 mg Oral tab 1 tab nightly [Active]; Systane Vitamin [id number] lu-vn-ue-unit Oral cap [Active]; valsartan hydrochlorithiazide 320 mg - 12.5 mg daily [Active]; Vitamin B-12 1,000 mcg Oral tab daily [Active]; Vitamin C 1,000 mg Oral TbER daily [Active]; - PMHx: 13:56 constipation; Diabetes - IDDM; High Cholesterol; Hypertension; iw - PSHx: 13:56 Tonsillectomy; Modified Mastectomy Left; Appendectomy; Cholecystectomy; Hysterectomy; iw Bilateral Total Knee; Laminectomy; - Immunization history:: Adult Immunizations up to date. - Social history:: Smoking status: Patient/guardian denies using tobacco. - Family history:: not pertinent. - Ebola Screening: : Patient negative for fever greater than or equal to 101.5 degrees Fahrenheit, and additional compatible Ebola Virus Disease symptoms Patient denies exposure to infectious person Patient denies travel to an Ebola-affected area in the 21 days before illness onset No symptoms or risks identified at this time. - Hospitalizations: : No recent hospitalization is reported. ROS: 16:50 Constitutional: Negative for fever, chills, and weight loss, Eyes: Negative for injury, kav pain, redness, and discharge, ENT: Negative for injury, pain, and discharge, Neck: Negative for injury, pain, and swelling, Cardiovascular: Negative for chest pain, palpitations, and edema, Respiratory: Negative for shortness of breath, cough, wheezing, and pleuritic chest pain, Abdomen/GI: Negative for abdominal pain, nausea, vomiting, diarrhea, and constipation, Back: Negative for injury and pain, : Negative for injury, bleeding, discharge, and swelling, Skin: Negative for injury, rash, and discoloration, Neuro: Negative for headache, weakness, numbness, tingling, and seizure, Psych: Negative for depression, anxiety, suicide ideation, homicidal ideation, and hallucinations, Allergy/Immunology: Negative for hives, rash, and allergies, Endocrine: Negative for neck swelling, polydipsia, polyuria, polyphagia, and marked weight changes, Hematologic/Lymphatic: Negative for swollen nodes, abnormal bleeding, and unusual bruising. 16:50 MS/extremity: Positive for pain, tenderness. Exam: 16:50 Constitutional: This is a well developed, well nourished patient who is awake, alert, kav and in no acute distress. Head/Face: Normocephalic, atraumatic. Eyes: Pupils equal round and reactive to light, extra-ocular motions intact. Lids and lashes normal. Conjunctiva and sclera are non-icteric and not injected. Cornea within normal limits. Periorbital areas with no swelling, redness, or edema. ENT: Nares patent. No nasal discharge, no septal abnormalities noted. Tympanic membranes are normal and external auditory canals are clear. Oropharynx with no redness, swelling, or masses, exudates, or evidence of obstruction, uvula midline. Mucous membranes moist. Neck: Trachea midline, no thyromegaly or masses palpated, and no cervical lymphadenopathy. Supple, full range of motion without nuchal rigidity, or vertebral point tenderness. No Meningismus. Chest/axilla: Normal chest wall appearance and motion. Nontender with no deformity. No lesions are appreciated. Cardiovascular: Regular rate and rhythm with a normal S1 and S2. No gallops, murmurs, or rubs. Normal PMI, no JVD. No pulse deficits. Respiratory: Lungs have equal breath sounds bilaterally, clear to auscultation and percussion. No rales, rhonchi or wheezes noted. No increased work of breathing, no retractions or nasal flaring. Abdomen/GI: Soft, non-tender, with normal bowel sounds. No distension or tympany. No guarding or rebound. No evidence of tenderness throughout. Back: No spinal tenderness. No costovertebral tenderness. Full range of motion. Skin: Warm, dry with normal turgor. Normal color with no rashes, no lesions, and no evidence of cellulitis. Neuro: Awake and alert, GCS 15, oriented to person, place, time, and situation. Cranial nerves II-XII grossly intact. Motor strength 5/5 in all extremities. Sensory grossly intact. Cerebellar exam normal. Normal gait. Psych: Awake, alert, with orientation to person, place and time. Behavior, mood, and affect are within normal limits. 16:50 Musculoskeletal/extremity: Extremities: noted in the anterior aspect of left lateral abdomen: pain, noted in the anterior aspect of left shoulder: pain, noted in the left knee: pain, Noted in chin: pain. Vital Signs: 13:54 BP 138 / 66; Pulse 78; Resp 16; Pulse Ox 98% on R/A; iw MDM: 13:53 Medical screening is not applicable. kav 16:50 Differential diagnosis: abrasion, contusion, fracture, sprain, strain. Data reviewed: critical [facility] hospital vital signs, nurses notes. Counseling: I had a detailed discussion with the patient and/or guardian regarding: the historical points, exam findings, and any diagnostic results supporting the discharge/admit diagnosis, radiology results. 05/14 14:48 Order name: Shoulder Left (2 View) [facility] 05/14 16:49 Interpretation: No acute disease. [facility] 05/14 14:48 Order name: Ribs Left [facility] 05/14 16:50 Interpretation: No acute disease. [facility] 05/14 14:48 Order name: Knee Left 3 View [facility] 05/14 16:49 Interpretation: No acute disease. [facility] 05/14 15:13 Order name: C Spine Ap/Lat [facility] 05/14 16:50 Interpretation: No acute disease. [facility] Administered Medications: 15:05 Drug: Ibuprofen 800 mg Route: PO; iw Disposition: 05/15 06:59 Co-signature as Attending Physician, Danny Almanza MD I agree with the assessment and kdr plan of care. Disposition: 05/14/18 16:58 Discharged to Home. Impression: Contusion of left shoulder, Contusion of left knee, Contusion Left Rib Area, Contusion Chin. - Condition is Stable. - Discharge Instructions: Rib Contusion, Contusion, Aonw-sa-Vata. - Prescriptions for Ibuprofen 800 mg Oral Tablet - take 1 tablet by ORAL route every 12 hours As needed take with food; 20 tablet. - Medication Reconciliation Form, Thank You Letter form. - Follow up: Private Physician; When: 5 - 6 days; Reason: Recheck today's complaints, Continuance of care, Re-evaluation by your physician. - Problem is new. - Symptoms have improved. Signatures: Dispatcher [employer] [facility] Danny Almanza MD MD kdr Vern, Katherine, GOVERNMENT TEACHER GOVERNMENT TEACHER Elsy Dubois, LINDA RN iw Corrections: (The following items were deleted from the chart) 05/14 15:13 14:49 Neck Soft Tissue+RAD.RAD.BRZ ordered. EDMS EDMS 17:13 16:58 05/14/2018 16:58 Discharged to Home. Impression: Contusion of left shoulder; iw Contusion of left knee; Contusion Left Rib Area, Contusion Chin. Condition is Stable. Forms are Medication Reconciliation Form, Thank You Letter, Antibiotic Education, Prescription Opioid Use. Follow up: Private Physician; When: 5 - 6 days; Reason: Recheck today's complaints, Continuance of care, Re-evaluation by your physician. Problem is new. Symptoms have improved. kav
--- NOTE | 2018-05-14 17:23 | RAD REPORT ---
EXAM DESCRIPTION: RAD - Shoulder Left 2 View - 05/14/2018 4:20 pm CLINICAL HISTORY: Left shoulder pain status post fall FINDINGS: No fracture or dislocation is seen. The bones are osteoporotic
--- NOTE | 2018-05-14 17:23 | RAD REPORT ---
EXAM DESCRIPTION: RAD - Ribs Left - 05/14/2018 4:21 pm CLINICAL HISTORY: Left rib pain FINDINGS: No fracture is seen. The bones are osteoporotic
--- NOTE | 2018-05-14 17:24 | RAD REPORT ---
EXAM DESCRIPTION: RAD - Knee Left 3 View - 05/14/2018 4:21 pm CLINICAL HISTORY: Left knee pain status post injury FINDINGS: No fracture or dislocation is seen. Left knee arthroplasty has been performed. There is no evidence of loosening of the knee prosthesis. The bones are osteoporotic
--- NOTE | 2018-05-14 17:24 | RAD REPORT ---
EXAM DESCRIPTION: RAD - C Spine Ap/Lat - 05/14/2018 4:21 pm CLINICAL HISTORY: Neck pain status post injury FINDINGS: Minimal anterior subluxation C2 on C3. . The odontoid process is not well seen on the open-mouth odontoid view. If the patient has pain in thi s region then repeat x-ray would be recommended. No fracture or dislocation seen The bones are osteoporotic. Moderate spondylosis involves the distal cervical spine
[2018-05-14 18:18] VITALS: BP 138/66; O2SAT 98
== END 2018-05-14 17:13 | disposition home or self-care (01) ==
LOC: ER 13:37
DX: S40.012A Contusion of left shoulder, initial encounter (principal); S80.02XA Contusion of left knee, initial encounter; S20.212A Contusion of left front wall of thorax, initial encounter; S00.83XA Contusion of other part of head, initial encounter; W18.09XA Striking against other object with subsequent fall, initial encounter; Y93.89 Activity, other specified; Y92.512 Supermarket, store or market as the place of occurrence of the external cause; Z79.82 Long term (current) use of aspirin; Z88.0 Allergy status to penicillin; I10 Essential (primary) hypertension; E11.9 Type 2 diabetes mellitus without complications; E78.00 Pure hypercholesterolemia, unspecified
CPT/HCPCS: 72040; 99283

== ENCOUNTER 2019-04-20 09:11 | Emergency (ER) | payer OTHER, MEDICARE ==
[2019-04-20 10:06] LABS: Absolute Lymphocytes (CBC) 1.7 K/uL (0.7-4.9); Basophils % 0.9 % (0-1.3); Hematocrit 34.4 % (36.0-45.0); Lymphocytes % 22.7 % (15.3-44.8); MPV 9.3 fL (7.6-11.3); RBC Red Blood Cell Count 3.82 M/uL (3.86-4.86)
[2019-04-20 10:08] LABS: Protime INR 1.07
--- NOTE | 2019-04-20 10:21 | RAD REPORT ---
EXAM DESCRIPTION: [place] Single View04/20/2019 10:06 am CLINICAL HISTORY: Chest pain COMPARISON: March 29 2018 FINDINGS: The lungs appear clear of acute infiltrate. The heart is mildly enlarged IMPRESSION: No acute abnormalities displayed
[2019-04-20 10:29] LABS: ALT/SGPT 13 U/L (12-78); AST/SGOT 14 U/L (15-37); Albumin 3.6 g/dL (3.4-5.0); Alkaline Phosphatase 57 U/L (45-117); BUN Blood Urea Nitrogen 13 mg/dL (7-18); Bicarbonate 25 mmol/L (21-32); Bilirubin Direct 0.1 mg/dL (0-0.2); Bilirubin Total 0.4 mg/dL (0.2-1.0); Glucose Level 139 mg/dL (74-106); Magnesium 1.8 mg/dL (1.8-2.4); NT PRO-BNP 108 pg/mL (<450); Potassium 4.3 mmol/L (3.5-5.1); Protein, Total 7.2 g/dL (6.4-8.2); Sodium Level 138 mmol/L (136-145); Troponin (Emerg Dept Use Only) < 0.02 ng/mL (0.0-0.045)
[2019-04-20 10:30] LABS: C-Reactive Protein < 2.90 mg/L (<3.00)
[2019-04-20 11:26] LABS: Urine Blood NEGATIVE (NEG); Urine Glucose NEGATIVE (NEG); Urine Protein NEGATIVE (NEG); Urine pH 6.5 (5.0-7.0)
--- NOTE | 2019-04-20 11:32 | RAD REPORT ---
EXAM DESCRIPTION: CT - Head C Spine Mpr Wo Con - 04/20/2019 10:59 am CLINICAL HISTORY: Left finger numbness COMPARISON: None. TECHNIQUE: Computed axial tomography of the head and cervical spine was obtained. Sagittal and coronal reconstruction was performed. All CT scans are performed using dose optimization technique as appropriate and may include automated exposure control or mA/KV adjustment according to patient size. FINDINGS: Mild to moderate low-density areas within periventricular, deep and subcortical white walter er probably ischemic changes secondary to small vessel disease An intracranial bleed is not seen. The ventricles are normal in caliber. An extra-axial fluid collect ion is not noted.Fluid within the visualized sinuses and mastoids is not seen A cervical fracture is not visualized. No dislocation is noted. Spondylosis C3-4 results in moderate right foraminal stenosis Spondylosis C4-5 results in marked right foraminal stenosis. There is a moderate to large central malu cified disc herniation compressing spinal cord resulting in marked central spinal stenosis Spondylosis C5-6 resulting in moderate to marked bilateral foraminal stenosis IMPRESSION: No acute intracranial abnormality is seen. A cervical fracture is not visualized. If the patient continues to have symptoms to suggest intracra nial /spinal cord pathology then MRI would be recommended Moderate to large central disc herniation C4-5 in combination with spondylosis resulting in marked ce ntral spinal stenosis Additional spondylosis resulting in foraminal stenosis as described above
[2019-04-20] MEDS ORDERED: NA CHLORIDE 0.9% 100 ML IV ONE (12:26)
[2019-04-20] MEDS ORDERED: CEFTRIAXONE/SWI 1gm 1 GM/10 ML SYR ONE (12:26)
[2019-04-20] MEDS ORDERED: dexAMETHasone 4 MG/ML VIAL ONE (12:28)
--- NOTE | 2019-04-20 12:28 | EKG ---
Test Date: 2019-04-20 Test Time: 09:59:25 Finance Analyst: JUSTO MEASUREMENT RESULTS: Intervals: Rate: 56 SD: 214 QRSD: 96 QT: 458 QTc: 441 [place]: P: 78 SD: 214 QRS: 12 T: 44 INTERPRETIVE STATEMENTS: Sinus bradycardia with 1st degree AV block Otherwise normal ECG Compared to ECG 03/29/2018 12:49:21 First degree AV block now present Sinus rhythm no longer present Electronically Signed On 04-20-19 12:27:12 MANUFACTURING PROJECT MANAGER by Matti Jaeger
--- NOTE | 2019-04-20 12:50 | RAD REPORT ---
EXAM DESCRIPTION: USCarotid Artery Bilateral04/20/2019 10:48 am CLINICAL HISTORY: Syncope COMPARISON: None FINDINGS: The velocity of the right internal carotid artery equals 72 cm/sec. The right ICA/CCA rati o 0.7 The velocity of the left internal carotid artery equals 85 cm/sec. The left ICA/CCA ratio 1 Mild plaque is present within the carotid arteries. The vertebral arteries demonstrate antegrade flow IMPRESSION: Mild plaque within the carotid arteries without evidence of a hemodynamically significan t stenosis NASCET criteria used. Mild 0-49% stenosis Moderate 50-69% stenosis Severe 70-99% stenosis
--- NOTE | 2019-04-20 13:08 | RAD REPORT ---
EXAM DESCRIPTION: MRI - C Spine Wo Cont- 04/20/2019 12:46 pm CLINICAL HISTORY: Tingling L arm Neck pain, radiculopathy COMPARISON: Head C Spine Mpr Wo Con dated 04/20/2019 FINDINGS: Cervical vertebral bodies are normal in height and alignment. No suspicious marrow edema or marrow replacing process. No fracture or traumatic subluxation. Degenerative changes are present at the craniocervical junction with ligamentous thickening evident. C2-3 level: Small posterior osteophyte/ disc complex is present attenuating the anterior subarachnoid space. Mild narrowing of both exit foramina caused by uncovertebral and facet spurring. C3-4 level: Small posterior osteophyte/ disc complex is present with right-sided uncovertebral facet spurring narrowing the right exit foramen. C4-5 level: Large extruded disc is present centrally measuring 6 mm in anterior-posterior dimension. This results in severe central canal stenosis with mild cord edema seen. Severe right-sided facet spu rring and uncovertebral spurring narrows the right exit foramen. C5-6 level: Mild posterior osteophyte/disc complex is present attenuating the anterior subarachnoid s pace and mildly narrowing the central canal. Right-sided uncovertebral facet spurring narrows the rig ht exit foramen. C6-7 level: 3 mm broad-based disc protrusion is present slightly greater on the left resulting in mil d central canal stenosis. . Left-sided facet and uncovertebral hypertrophy narrows the left exit fora men moderately. C7-T1 level: Degenerative 3 mm anterolisthesis is present with posterior osteophyte/ disc complex. No significant central canal stenosis. Mild narrowing of both exit foramina caused by uncovertebral spu rring. Mild linear cord edema suspected at C4-5 centrally. IMPRESSION: Severe central canal stenosis at C4-5 as detailed. Additional multilevel degenerative spondylosis is present as fully described above.
--- NOTE | 2019-04-20 14:33 | EDPHYS ---
Physician Documentation [facility] Name: Jaquelin Chiu Age: 89 yrs Sex: Female : 1930 Arrival Date: 04/20/2019 Time: 09:14 Bed 19 Private MD: JOSE ENRIQUE Physician Kwame Lipscomb HPI: 04/20 10:13 This 89 yrs old Female presents to ER via Wheelchair with complaints of shelby Numbness Of Arm, Numbness Of Hand. 10:13 The patient or guardian complains of numbness, left arm. The complaints affect the left shelby bicep, left antecubital area, dorsal aspect of left forearm, left hand, left tricep, left elbow and palmar aspect of left forearm. Context: The problem was sustained. Onset: The symptoms/episode began/occurred this morning. Treatment prior to arrival includes: no previous treatment. Modifying factors: The symptoms are alleviated by nothing. the symptoms are aggravated by nothing. Associated signs and symptoms: The patient has no apparent associated signs or symptoms. Severity of symptoms: At their worst the symptoms were mild, in the emergency department the symptoms are unchanged. The patient has experienced a previous episode, last year. Historical: - Allergies: 09:28 PENICILLINS; ss - PMHx: :28 constipation; Hypertension; Diabetes - IDDM; High Cholesterol; ss - PSHx: :28 Appendectomy; Modified Mastectomy Left; Tonsillectomy; Cholecystectomy; Hysterectomy; ss Bilateral Total Knee; Laminectomy; - Immunization history:: Adult Immunizations up to date. - Coronavirus screen:: The patient has NOT traveled to [place], [place], or [place] in the past 14 days. Proceed with normal triage process as indicated. - Social history:: Smoking status: Patient denies any tobacco usage or history of. - Family history:: not pertinent. - Ebola Screening: : Patient denies exposure to infectious person Patient denies travel to an Ebola-affected area in the 21 days before illness onset. ROS: 10:13 Constitutional: Negative for fever, chills, and weight loss, Eyes: Negative for injury, shelby pain, redness, and discharge, ENT: Negative for injury, pain, and discharge, Neck: Negative for injury, pain, and swelling, Cardiovascular: Negative for chest pain, palpitations, and edema, Respiratory: Negative for shortness of breath, cough, wheezing, and pleuritic chest pain, Abdomen/GI: Negative for abdominal pain, nausea, vomiting, diarrhea, and constipation, Back: Negative for injury and pain, : Negative for injury, bleeding, discharge, and swelling, Skin: Negative for injury, rash, and discoloration, Neuro: Negative for headache, weakness, numbness, tingling, and seizure, Psych: Negative for depression, anxiety, suicide ideation, homicidal ideation, and hallucinations, Allergy/Immunology: Negative for hives, rash, and allergies, Endocrine: Negative for neck swelling, polydipsia, polyuria, polyphagia, and marked weight changes, Hematologic/Lymphatic: Negative for swollen nodes, abnormal bleeding, and unusual bruising. 10:13 MS/extremity: Positive for decreased range of motion, paresthesias, tingling. Exam: 10:16 Constitutional: This is a well developed, well nourished patient who is awake, alert, shelby and in no acute distress. Head/Face: Normocephalic, atraumatic. Eyes: Pupils equal round and reactive to light, extra-ocular motions intact. Lids and lashes normal. Conjunctiva and sclera are non-icteric and not injected. Cornea within normal limits. Periorbital areas with no swelling, redness, or edema. ENT: Nares patent. No nasal discharge, no septal abnormalities noted. Tympanic membranes are normal and external auditory canals are clear. Oropharynx with no redness, swelling, or masses, exudates, or evidence of obstruction, uvula midline. Mucous membranes moist. Neck: Trachea midline, no thyromegaly or masses palpated, and no cervical lymphadenopathy. Supple, full range of motion without nuchal rigidity, or vertebral point tenderness. No Meningismus. Chest/axilla: Normal chest wall appearance and motion. Nontender with no deformity. No lesions are appreciated. Cardiovascular: Regular rate and rhythm with a normal S1 and S2. No gallops, murmurs, or rubs. Normal PMI, no JVD. No pulse deficits. Respiratory: Lungs have equal breath sounds bilaterally, clear to auscultation and percussion. No rales, rhonchi or wheezes noted. No increased work of breathing, no retractions or nasal flaring. Abdomen/GI: Soft, non-tender, with normal bowel sounds. No distension or tympany. No guarding or rebound. No evidence of tenderness throughout. Female : Normal external genitalia. Skin: Warm, dry with normal turgor. Normal color with no rashes, no lesions, and no evidence of cellulitis. MS/ Extremity: Pulses equal, no cyanosis. Neurovascular intact. Full, normal range of motion. Neuro: Awake and alert, GCS 15, oriented to person, place, time, and situation. Cranial nerves II-XII grossly intact. Motor strength 5/5 in all extremities. Sensory grossly intact. Cerebellar exam normal. Normal gait. Psych: Awake, alert, with orientation to person, place and time. Behavior, mood, and affect are within normal limits. 10:16 Back: pain, that is mild, of the left scapular area, ROM is normal, normal spinal alignment noted, CVA tenderness, is absent, vertebral tenderness, is not appreciated, muscle spasm, is not present. Vital Signs: 09:28 BP 132 / 56; Pulse 57; Resp 17; Temp 97.9(TE); Pulse Ox 95% on R/A; Weight 82.1 kg; ss Height 5 ft. 5 in. (165.10 cm); Pain 0/10; 10:23 BP 104 / 47; Pulse 57; Resp 16; Pulse Ox 94% ; bp 11:15 BP 137 / 60; Pulse 58; Resp 17; Pulse Ox 97% ; bp 12:25 BP 123 / 58; Pulse 59; Resp 17; Pulse Ox 95% ; bp 14:03 BP 136 / 69; Pulse 64; Resp 16; Pulse Ox 94% ; bp 16:18 BP 139 / 62; Pulse 68; Resp 16; Pulse Ox 94% ; bp 18:38 BP 154 / 60; Pulse 86; Resp 17; Pulse Ox 95% ; bp 20:30 BP 163 / 61; Pulse 84; Resp 18; Temp 97.6; Pulse Ox 95% on R/A; 09:28 Body Mass Index 30.12 (82.10 kg, 165.10 cm) ss MDM: 09:29 Patient medically screened. [facility] 10:16 Data reviewed: vital signs, nurses notes, lab test result(s), EKG, radiologic studies, [facility] CT scan, plain films. 04/20 09:32 Order name: Basic Metabolic Panel [facility] 04/20 09:32 Order name: CBC with Diff [facility] 04/20 09:32 Order name: LFT's [facility] 04/20 09:32 Order name: Magnesium [facility] 04/20 09:32 Order name: NT PRO-BNP [facility] 04/20 09:32 Order name: PT-INR [facility] 04/20 09:32 Order name: Troponin (emerg Dept Use Only) [facility] 04/20 09:32 Order name: Urine Culture [facility] 04/20 09:32 Order name: Sed Rate [facility] 04/20 09:32 Order name: CRP [facility] 04/20 10:16 Order name: CBC with Automated Diff; Complete Time: 11:54 EDMS 04/20 10:18 Order name: Protime (+INR); Complete Time: 11:54 EDMS 04/20 10:22 Order name: Sedimentation Rate, Westergren; Complete Time: 11:54 EDMS 04/20 10:31 Order name: Basic Metabolic Panel; Complete Time: 11:54 EDMS 04/20 09:32 Order name: XRAY Chest (1 view) [facility] 04/20 09:32 Order name: CT Head C Spine [facility] 04/20 10:18 Order name: US Carotid Artery Bilateral [facility] 04/20 10:27 Order name: RAD; Complete Time: 11:54 EDMS 04/20 10:31 Order name: Liver (Hepatic) Function; Complete Time: 11:54 EDMS 04/20 10:31 Order name: Troponin (Emerg Dept Use Only); Complete Time: 11:54 EDMS 04/20 10:31 Order name: NT PRO-BNP; Complete Time: 11:54 EDMS 04/20 10:31 Order name: C-Reactive Protein; Complete Time: 11:54 EDMS 04/20 10:31 Order name: Magnesium; Complete Time: 11:54 EDMS 04/20 11:17 Order name: Urine Dipstick--Ancillary (enter results) 04/20 11:27 Order name: Urine Dipstick-Ancillary; Complete Time: 11:54 EDMS 04/20 11:34 Order name: CT; Complete Time: 11:54 EDMS 04/20 12:55 Order name: US; Complete Time: 14:51 EDMS 04/20 13:23 Order name: MRI; Complete Time: 14:51 EDMS 04/20 19:33 Order name: Glucose, Ancillary Testing EDFL 04/20 09:32 Order name: EKG; Complete Time: 09:34 [facility] 04/20 09:32 Order name: Cardiac monitoring; Complete Time: 09:40 [facility] 04/20 09:32 Order name: EKG - Nurse/Tech; Complete Time: 10:01 [facility] 04/20 09:32 Order name: IV Saline Lock; Complete Time: 10: [facility] 04/20 09:32 Order name: Labs collected and sent; Complete Time: 10:01 [facility] 04/20 09:32 Order name: O2 Per Protocol; Complete Time: 09:39 [facility] 04/20 09:32 Order name: O2 Sat Monitoring; Complete Time: 09:39 [facility] 04/20 09:32 Order name: Urine Dipstick-Ancillary (obtain specimen); Complete Time: 11:18 [facility] 04/20 16:37 Order name: Diet Full Liquid: Pt requests WARM soup; Complete Time: 16:37 ss Administered Medications: 13:00 Drug: Decadron - Dexamethasone 10 mg Route: IVP; Site: right hand; bp 13:23 Follow up: Response: No adverse reaction bp 13:00 Drug: Rocephin 1 grams Route: IV; Rate: per protocol; Site: right antecubital; bp 21:01 Follow up: Response: No adverse reaction; IV Status: Completed infusion 16:27 Drug: Tussionex Pennkinetic ER 5 ml {Note: 5ML GIVEN PER MD.} Route: PO; bp 18:39 Follow up: Response: Marked relief of symptoms bp Disposition: 04/20/19 14:[address] [facility]. Diagnosis are Cervical disc disorders, Cervical disc disorder with radiculopathy, Other cervical disc displacement, mid-cervical region - with cord conpression. - Reason for transfer: Higher level of care. - Accepting physician is to [facility] neuro, dr sterling. - Condition is Fair. - Problem is new. - Symptoms have improved. Signatures: Dispatcher [employer] EDMS Kwame Lipscomb MD MD cha Smirch, Shelby, RN RN Kathy Mclean Brian, RN RN bp Corrections: (The following items were deleted from the chart) 14:53 14:31 04/20/2019 14:[address] [facility]. [facility] Diagnosis is Cervical disc disorders; Cervical disc disorder with radiculopathy; Other cervical disc displacement, mid-cervical region - with cord conpression. Reason for transfer: Higher level of care. Accepting physician is to [facility] neuro. Condition is Fair. Problem is new. Symptoms have improved. [facility] 21:01 14:53 04/20/2019 14:[address] [facility]. wh Diagnosis is Cervical disc disorders; Cervical disc disorder with radiculopathy; Other cervical disc displacement, mid-cervical region - with cord conpression. Reason for transfer: Higher level of care. Accepting physician is to [facility] neuro, dr sterling. Condition is Fair. Problem is new. Symptoms have improved. shelby
--- NOTE | 2019-04-20 14:33 | ER ---
Nurse's Notes [facility] Name: Jaquelin Chiu Age: 89 yrs Sex: Female : 1930 Arrival Date: 04/20/2019 Time: 09:14 Bed 19 Private MD: Diagnosis: Cervical disc disorders;Cervical disc disorder with radiculopathy;Other cervical disc displacement, mid-cervical region-with cord conpression Presentation: 04/20 09:22 Presenting complaint: Patient states: tingling to L fingers and pain to L upper back ss that patient noticed this morning when she woke up at 0600. Pt states, "this is what happened last night my magnesium was low." Pt went to bed at 1700 yesterday evening. Transition of care: patient was not received from another setting of care. Onset of symptoms is unknown. Risk Assessment: Do you want to hurt yourself or someone else? Patient reports no desire to harm self or others. Initial Sepsis Screen: Does the patient have a suspected source of infection? No. Patient's initial sepsis screen is negative. Initial Sepsis Screen: Does the patient meet any 2 criteria? No. Patient's initial sepsis screen is negative. Care prior to arrival: None. 09:22 Method Of Arrival: Wheelchair ss 09:22 Acuity: KALLI 3 ss Triage Assessment: 09:30 General: Appears in no apparent distress. comfortable, obese, Behavior is appropriate bp for age. Pain: Denies pain. EENT: No deficits noted. Neuro: Level of Consciousness is awake, alert, obeys commands, Oriented to person, place, time, situation, Appropriate for age Reports numbness in left hand. Cardiovascular: No deficits noted. Respiratory: No deficits noted. GI: No signs and/or symptoms were reported involving the gastrointestinal system. : No signs and/or symptoms were reported regarding the genitourinary system. Derm: No deficits noted. Musculoskeletal: No deficits noted. Historical: - Allergies: : PENICILLINS; ss - PMHx: : constipation; Hypertension; Diabetes - IDDM; High Cholesterol; ss - PSHx: :28 Appendectomy; Modified Mastectomy Left; Tonsillectomy; Cholecystectomy; Hysterectomy; ss Bilateral Total Knee; Laminectomy; - Immunization history:: Adult Immunizations up to date. - Coronavirus screen:: The patient has NOT traveled to [place], [place], or [place] in the past 14 days. Proceed with normal triage process as indicated. - Social history:: Smoking status: Patient denies any tobacco usage or history of. - Family history:: not pertinent. - Ebola Screening: : Patient denies exposure to infectious person Patient denies travel to an Ebola-affected area in the 21 days before illness onset. Screenin:08 Abuse screen: Denies threats or abuse. Denies injuries from another. Nutritional bp screening: No deficits noted. Tuberculosis screening: No symptoms or risk factors identified. Fall Risk None identified. Assessment: 09:30 General: SEE TRIAGE NOTE. bp 10:24 Reassessment: PT TO U/S. NO FOCAL NEURO DEFICITS NOTED. bp 11:07 Reassessment: PT RETURNED FROM CT AND U/S. ALL CURRENT ORDERS COMPLETED, RESULTS bp PENDING. 12:25 Reassessment: PT TO MRI. bp 14:02 Reassessment: MD WAITING FOR NEUROSURG C/S FOR DISPO. bp 14:44 Reassessment: TRANSFER INITIATED. NO NEURO DEFICITS NOTED AT THIS TIME. bp 16:19 Reassessment: TRANSFER IN PROCESS. EXTENSION REQUESTED BY FACILITY TO ARRANGE NICU BED. bp PT REMAINS NEURO INTACT. 18:00 Reassessment: FAMILY AT B/S. BED ASSIGNMENT FOR TRANSFER PENDING. PT REMAINS NEURO bp INTACT. 19:28 Reassessment: Report given to Janey La RN. 20:59 Reassessment: Patient appears in no apparent distress at this time. No changes from previously documented assessment. Patient and/or family updated on plan of care and expected duration. Pain level reassessed. Patient is alert, oriented x 3, equal unlabored respirations, skin warm/dry/pink. Vital Signs: 09:28 BP 132 / 56; Pulse 57; Resp 17; Temp 97.9(TE); Pulse Ox 95% on R/A; Weight 82.1 kg; ss Height 5 ft. 5 in. (165.10 cm); Pain 0/10; 10:23 BP 104 / 47; Pulse 57; Resp 16; Pulse Ox 94% ; bp 11:15 BP 137 / 60; Pulse 58; Resp 17; Pulse Ox 97% ; bp 12:25 BP 123 / 58; Pulse 59; Resp 17; Pulse Ox 95% ; bp 14:03 BP 136 / 69; Pulse 64; Resp 16; Pulse Ox 94% ; bp 16:18 BP 139 / 62; Pulse 68; Resp 16; Pulse Ox 94% ; bp 18:38 BP 154 / 60; Pulse 86; Resp 17; Pulse Ox 95% ; bp 20:30 BP 163 / 61; Pulse 84; Resp 18; Temp 97.6; Pulse Ox 95% on R/A; wh 09:28 Body Mass Index 30.12 (82.10 kg, 165.10 cm) ED Course: 09:14 Patient arrived in ED. mr 09:27 Triage completed. ss 09:28 Arm band placed on right wrist. ss 09:29 Zurdo Cox, RN is Primary Nurse. bp 09:29 Kwame Lipscomb MD is Attending Physician. shelby 10:02 Initial lab(s) drawn, by ga, sent to lab. Inserted saline lock: 20 gauge in right em1 forearm, using aseptic technique. Blood collected. Missed attempt(s): 20 gauge in right wrist. Bleeding controlled, band aid applied, catheter tip intact. 10:08 Patient has correct armband on for positive identification. Bed in low position. Call bp light in reach. Side rails up X2. 10:27 EKG done, by technical assistant. reviewed by Kwame Lipscomb MD. at1 14:19 attempted transfer to [facility], pt denied due to no beds at this time,per [facility]. 21:00 No provider procedures requiring assistance completed. Patient transferred, IV remains in place. Administered Medications: 13:00 Drug: Decadron - Dexamethasone 10 mg Route: IVP; Site: right hand; bp 13:23 Follow up: Response: No adverse reaction bp 13:00 Drug: Rocephin 1 grams Route: IV; Rate: per protocol; Site: right antecubital; bp 21:01 Follow up: Response: No adverse reaction; IV Status: Completed infusion 16:27 Drug: Tussionex Pennkinetic ER 5 ml {Note: 5ML GIVEN PER MD.} Route: PO; bp 18:39 Follow up: Response: Marked relief of symptoms bp Outcome: 14:31 ER care complete, transfer ordered by MD. [facility] 21:00 Transferred by [facility] to [facility], Transfer form completed. X-rays sent w/ patient. Note: Report given to [facility] 21:00 Condition: stable 21:00 Instructed on the need for transfer. 21:01 Patient left the ED. Signatures: Maida Higuera Corey, MD MD cha Rivera, Jaquelin mr Guillermo, Reginald em1 Katia Abdi, LINDA RN Tisha Gutierrez, rrt EKG Tat1 Kathy Donahue Zudro Cox, RN RN bp Corrections: (The following items were deleted from the chart) 10:27 10:24 Reassessment: ALL CURRENT ORDERS COMPLETED, RESULTS PENDING. NO FOCAL NEURO bp DEFICITS NOTED bp 21:01 20:30 BP 163 / 61; Pulse 84bpm; Resp 18bpm; Pulse Ox 95% RA; [facility]
[2019-04-20] MEDS ORDERED: HYDROCODONE/CHLORPHEN 5 ML/OSYR ONE (16:30)
[2019-04-22 11:18] VITALS: O2SAT 95
[2019-04-22 11:19] VITALS: BP 163/61; TEMP 97.6
== END 2019-04-20 21:01 | disposition short-term general hospital (02) ==
LOC: ER 09:11
DX: M50.10 Cervical disc disorder with radiculopathy, unspecified cervical region (principal); M50.20 Other cervical disc displacement, unspecified cervical region; I10 Essential (primary) hypertension; Z88.0 Allergy status to penicillin
CPT/HCPCS: 93005; 87088; 85025; 87086; 80048; 36415; 83735; 85610; 82947; 80076; 85652; 81003; 84484; 83880; 86140; 70450; 72125; 71045; 93880; 72141; J0696; 96365; 96366; 96375; 99285

== ENCOUNTER 2019-12-01 18:54 | Emergency (ER) | payer OTHER, MEDICARE ==
--- OUTSIDE RECORDS SUMMARY | 2019-12-01 18:57 | XMS REPORT | Clinical Summary ---
:1930 Author Organization [facility] Address [address] [place] [address] Care Team Providers Name Role Phone Pcp Primary Care Provider Unavailable Allergies Active Allergy Reactions Severity Noted Date Comments Penicillins Rash High 04/20/2019 Medications Medication Sig Dispensed Refills Start Date End Date Status amLODIPine Take 5 mg by mouth 1 03/25/2019 Active (NORVASC) 5 MG daily. tablet carvedilol (COREG) Take 25 mg by mouth 1 04/03/2019 Active 25 MG tablet daily. furosemide (LASIX) Take 40 mg by mouth 2 02/06/2019 Active 40 MG tablet daily as needed. LANTUS SOLOSTAR Inject 22 Units 6 04/01/2019 Active U-100 INSULIN 100 subcutaneously 2 unit/mL (3 mL) InPn (two) times daily. isosorbide Take 60 mg by mouth 2 04/17/2019 Active mononitrate (IMDUR) daily. 60 MG 24 hr tablet metFORMIN Take 1,000 mg by 6 04/03/2019 Ac tive (GLUCOPHAGE) 1000 mouth daily. MG tablet montelukast Take 10 mg by mouth 6 04/17/2019 Active (SINGULAIR) 10 mg daily. tablet omeprazole Take 40 mg by mouth 1 02/05/2019 Active (PRILOSEC) 40 MG daily. capsule KLOR-CON M10 10 mEq Take 10 mEq by mouth 3 0 Active tablet daily. simvastatin (ZOCOR) Take 20 mg by mouth 3 04/03/2019 Active 20 MG tablet daily. Active Problems Problem Noted Date History of cataract surgery bilateral 04/21/2019 HTN (hypertension) 04/21/2019 HLD (hyperlipidemia) 04/21/2019 CHF (congestive heart failure) 04/21/2019 IDDM (insulin dependent diabetes mellitus) 04/21/2019 Osteoarthritis 04/21/2019 GERD (gastroesophageal reflux disease) 04/21/2019 Diverticulitis 04/21/2019 H/O unilateral modified radical mastectomy, left 04/21 Spondylosis, C4-C5 herniated disc 04/20/2019 Encounters Date Type Specialty Care Team Description 04/20/2019 - Hospital Intensive Care Nohemi Marin, Spondylo sis, C4-C5 herniated disc (Primary Dx); 04/22/2019 Encounter Emily Spondylosis; MD Billie IDDM (insu jazmin dependent diabetes mellitus) ([facility]); Essential hyper tension; Gastroesophagea l reflux disease with esophagitis; Biventricular c ongestive heart failure ([facility]); Diverticulitis 04/20/2019 Travel after 11/30/2018 Social History Tobacco Use Types Packs/Day Years Used Date Never Smoker Smokeless Tobacco: Never Used Tobacco Cessation: Counseling Given: No Alcohol Use Drinks/Week oz/Week Comments No Alcohol Habits Answer Date Recorded How often do you have a drink containing alcohol? Never 04/20/2019 How many drinks containing alcohol do you have on a typical Not asked day when you are drinking? How often do you have six or more drinks on one occasion? No t asked Sex Assigned at Date Recorded Not on file Job Start Date Occupation Industry Not on file Not on file Not on file Travel History Travel Start Travel End No recent travel history available. Last Filed Vital Signs Vital Sign Reading Time Taken Blood Pressure 149/87 04/22/2019 11:00 AM [employer]DER GLUER OPERATOR Pulse 61 04/22/2019 11:00 AM [employer] GLUER OPERATOR Temperature 36.4 C (97.6 F) 04/22/2019 11:00 AM [employer] FOLDER GLUER OPERATOR Respiratory Rate 16 04/22/2019 11:00 AM [employer] F[employer]DER GLUER OPERATOR Oxygen Saturation 97% 04/22/2019 11:00 AM [employer] F[employer]DER GLUER OPERATOR Inhaled Oxygen Concentration - - Weight 79.7 kg (175 lb 11.3 oz) 04/20/2019 11:0 0 PM [employer] F[employer]DER GLUER OPERATOR Height 165.1 cm (5' 5") 04/20/2019 11:00 PM [employer] FOLDER GLUER OPERATOR Body Mass Index 29.24 04/20/2019 11:00 PM [employer] F[employer]DER GLUER OPERATOR Plan of Treatment Not on file Procedures Procedure Name Priority Date/Time Associated Comments Diagnosis RHYTHM STRIP - SCAN 04/23/2019 2:33 PM FLEXO FOLDER GLUER OPERATOR REPORT OF PROCEDURE - 04/23/2019 2:33 ENDOSCOPY SCAN PM [employer]O FOLDER GLUER OPERATOR TRANSFUSION SERVICE 04/22/2019 5:54 REPORT - SCAN PM [employer]O FOLDER GLUER OPERATOR POCT-GLUCOSE METER Routine 04/22/2019 11:37 Resul ts for this AM [employer] FOLDER GLUER OPERATOR procedure are i n the results section. POCT-GLUCOSE METER Routine 04/22/2019 7:16 Resul ts for this AM [employer] FOLDER GLUER OPERATOR procedure are i n the results section. MAGNESIUM Routine 04/22/2019 4:39 Results for this AM [employer] F[employer]DER GLUER OPERATOR procedure are i n the results section. PHOSPHORUS Routine 04/22/2019 4:39 Results for this AM [employer] FOLDER GLUER OPERATOR procedure are i n the results section. BASIC METABOLIC PANEL Routine 04/22/2019 4:39 Re sults for this (7) AM [employer]O FOLDER GLUER OPERATOR procedure are i n the results section. CBC (HEMOGRAM ONLY) Routine 04/22/2019 4:39 Resu lts for this AM [employer] FOLDER GLUER OPERATOR procedure are i n the results section. POCT-GLUCOSE METER Routine 04/21/2019 9:43 Resul ts for this PM [employer]O FOLDER GLUER OPERATOR procedure are i n the results section. POCT-GLUCOSE METER Routine 04/21/2019 5:11 Resul ts for this PM FLEXO FOLDER GLUER OPERATOR procedure are i n the results section. MAGNESIUM Routine 04/21/2019 3:50 Results for this PM [employer]O FOLDER GLUER OPERATOR procedure are i n the results section. POCT-GLUCOSE METER Routine 04/21/2019 11:52 Resul ts for this AM F[employer]O FOLDER GLUER OPERATOR procedure are i n the results section. URINALYSIS W/ REFLEX STAT 04/21/2019 8:28 Res ults for this URINE CULTURE AM F[employer]O FOLDER GLUER OPERATOR procedure are in the results section. POCT-GLUCOSE METER Routine 04/21/2019 7:45 Resul ts for this AM F[employer]O FOLDER GLUER OPERATOR procedure are i n the results section. ABORH, MANUAL STAT 04/21/2019 6:07 Results fo r this AM F[employer]O FOLDER GLUER OPERATOR procedure are i n the results section. POCT-GLUCOSE METER Routine 04/21/2019 6:00 Resul ts for this AM [employer]O FOLDER GLUER OPERATOR procedure are i n the results section. XR CHEST 1 VIEW Routine 04/21/2019 5:00 Results for this PORTABLE/BEDSIDE AM [employer] FOLDER GLUER OPERATOR procedure a re in the results section. TYPE AND SCREEN, Routine 04/21/2019 2:49 Results for this AUTOMATED AM [employer] FOLDER GLUER OPERATOR procedure are i n the results section. FIBRINOGEN Routine 04/21/2019 2:49 Results for this AM [employer]O FOLDER GLUER OPERATOR procedure are i n the results section. APTT Routine 04/21/2019 2:49 Results for this AM [employer] FOLDER GLUER OPERATOR procedure are i n the results section. PROTHROMBIN TIME/INR Routine 04/21/2019 2:49 Res ults for this AM [employer] FOLDER GLUER OPERATOR procedure are i n the results section. HEMOGLOBIN A1C Routine 04/21/2019 2:49 Results f or this AM [employer] FOLDER GLUER OPERATOR procedure are i n the results section. PHOSPHORUS Routine 04/21/2019 2:49 Results for this AM [employer] FOLDER GLUER OPERATOR procedure are i n the results section. MAGNESIUM Routine 04/21/2019 2:49 Results for this AM [employer]O FOLDER GLUER OPERATOR procedure are i n the results section. BASIC METABOLIC PANEL Routine 04/21/2019 2:49 Re sults for this (7) AM F[employer]O FOLDER GLUER OPERATOR procedure are i n the results section. CBC (HEMOGRAM ONLY) Routine 04/21/2019 2:49 Resu lts for this AM F[employer]O FOLDER GLUER OPERATOR procedure are i n the results section. POCT-GLUCOSE METER Routine 04/21/2019 12:13 Resul ts for this AM FLEXO FOLDER GLUER OPERATOR procedure are i n the results section. after 11/30/2018 Results RHYTHM STRIP - SCAN (04/23/2019 2:33 PM FLEXO FOLDER GLUER OPERATOR) Narrative Performed At This result has an attachment that is no t available. EKG-SCANNED (04/23/2019 2:33 PM FLEXO FOLDER GLUER OPERATOR) Narrative Performed At This result has an attachment that is no t available. TRANSFUSION SERVICE REPORT - SCAN (04/22/2019 5:54 PM FLEXO FOLDER GLUER OPERATOR) Narrative Performed At This result has an attachment that is no t available. POC-Glucose meter (04/22/2019 11:37 AM FLEXO FOLDER GLUER OPERATOR)Only the most recent of8 results within the time period is included. POC-Glucose Meter 269 (H)Comment: : TESTED 70 - 110 mg/dL [facility] AT [address], [address]: Marker Assembler/Solid Fiber Paster Operator ID = [id number] for ALBERT ELYSE Specimen Blood Performing Organization Address City/State/Zipcode Phone Number [place] [phone] CENTER CBC (Hemogram only) (04/22/2019 4:39 AM FLEXO FOLDER GLUER OPERATOR)Only the most recent of2 results within the time period is included. WBC 10.0 3.5 - 10.5 K/L [facility] RBC 3.69 (L) 3.93 - 5.22 M/L [facility] Hemoglobin 11.0 (L) 11.2 - 15.7 GM/DL [facility] Hematocrit 33.9 (L) 34.1 - 44.9 % [facility] MCV 91.9 79.4 - 94.8 fL [facility] HE ALTH [facility] MCH 29.8 25.6 - 32.2 pg [facility] MCHC 32.4 32.2 - 35.5 GM/DL [facility] RDW 13.4 11.7 - 14.4 % [facility] Platelets 278 150 - 450 K/CU MM [facility] MPV 11.2 9.4 - 12.3 fL [facility] nRBC 0 0 - 0 /100 WBC [facility] Specimen Blood Performing Organization Address City/[facility] Cent[facility]ode Phone Number [facility] [address] [place] [address] CENTER Phosphorus (04/22/2019 4:39 AM FLEXO FOLDER GLUER OPERATOR)Only the most recent of2 resultswithin the time period is included. Phosphorus 2.0 (L) 2.3 - 4.7 mg/dL [facility] Specimen Blood Narrative Performed At Marker Assembler ID - JUANJOSE M [facility] Performing Organization Address City/[facility] Centercode Phone Number [facility] [address] [place] [address] CENTER Magnesium (04/22/2019 4:39 AM FLEXO FOLDER GLUER OPERATOR)Only the most recent of3 resultswithin the time period is included. Magnesium 1.6 1.6 - 2.6 mg/dL [facility] Specimen Blood Narrative Performed At Marker Assembler ID - JUANJOSE M [facility] Performing Organization Address City/[facility]/Zipcode Phone Number [facility] [address] [place] [address] [place] Basic Metabolic Panel (04/22/2019 4:39 AM FLEXO FOLDER GLUER OPERATOR)Only the most recent of2 results within the time period is included. Sodium 137 136 - 145 meq/L [facility] Potassium 3.7 3.5 - 5.1 meq/L [facility] Chloride 106 98 - 107 meq/L [facility] CO2 23 22 - 29 meq/L [facility] BUN 17 7 - 21 mg/dL [facility] Creatinine 0.65 0.57 - 1.25 mg/dL [facility] Glucose 248 (H) 70 - 105 mg/dL [facility] Calcium 9.3 8.4 - 10.2 mg/dL [facility] EGFR 86Comment: ESTIMATED GFR IS mL/min/1.73 sq m [facility] NOT ACCURATE CREATININE [facility] CLEARANCE IN PREDICTING GLOMERULAR FILTRATION RATE. ESTIMATED GFR IS NOT APPLICABLE FOR DIALYSIS PATIENTS. Specimen Blood Narrative Performed At Marker Assembler ID - JUANJOSE M [facility] Performing Organization Address City/[facility]/Zipcode Phone Number [facility] [address] [place] [address] [place] Urinalysis w/Microscopic + Reflex to Culture (04/21/2019 8:28 AM FLEXO FOLDER GLUER OPERATOR) Color, UA Light Yellow [facility] Clarity, UA Clear [facility] Specific [place], UA 1.015 1.001 - 1.035 [facility] pH, UA 6.0 5.0 - 8.0 [facility] Protein, UA 10 mg/dL (A) Negative [facility] Glucose, UA 300 mg/dL (A) Negative [facility] Ketones, UA 100 mg/dL (A) Negative [facility] Bilirubin, UA Negative Negative [facility] Blood, UA Negative Negative [facility] Nitrite, UA Negative Negative [facility] Leukocytes, UA Negative Negative [facility] Urobilinogen, UA 0.2 0.2 - 1.0 mg/dL [facility] RBC, UA <1 /HPF [facility] WBC, UA <1 /HPF [facility] Squam Epithel, UA <1 /HPF [facility] Specimen Source [facility] Specimen Urine Narrative Performed At Marker Assembler ID - [auto] [facility] Marker Assembler ID - tech Performing Organization Address City/State/Zipcode Phone Number [address] [address] CENTER ABORH, manual (04/21/2019 6:07 AM FLEXO FOLDER GLUER OPERATOR) ABO Grouping AB [facility] Rh Factor POS [facility] Specimen Blood Performing Organization Address City/[facility]/Zipcode Phone Number [address] [address] XR chest 1 view portable / bedside (04/21/2019 5:00 AM FLEXO FOLDER GLUER OPERATOR) Specimen Narrative Performed At FINAL REPORT GE RIS History: Preoperative evaluation, surger y unspecified. Comparison: None. Findings: A single view of the chest is submitted. The cardiac silhouette is within normal limits for size. The aorta is elongated. The lung volumes are slightly low. There is mild central vascular prominence, which may be exaggerated by low lung volumes are reflect mild vascular congestion. There is no pneumothorax, large pleural effusion or acute bony abnormality. Surgical clips overlie the left axilla. Signed: Julito Yap MD Report Verified Date/Time:04/21/2019 06:56:47 Procedure Note Interface, External Ris In - 04/21/2019 6:58 AM FLEXO FOLDER GLUER OPERATOR FINAL REPORT History: Preoperative evaluation, surger y unspecified. Comparison: None. Findings: A single view of the chest is submitted. The cardiac silhouette is within normal limits for size. The aorta is elongated. The lung volumes are slightly low. There is mild central vascular prominence, which may be exaggerated by low lung volumes are reflect mild vascular congestion. There is no pneumothorax, large pleural effusion or acute bony abnormality. Surgical clips overlie the left axilla. Signed: Julito Yap MD Report Verified Date/Time: 04/21/2019 0 6:56:47 Performing Organization Address City/[facility] Centercosc Phone Number RIS Type and screen, automated (04/21/2019 2:49 AM FLEXO FOLDER GLUER OPERATOR) ABO/RH AUTOMATED (BEAKER) AB POSITIVE [facility] Ab Scrn NEGATIVE [facility] Specimen Blood Performing Organization Address [facility] Centercode Phone Number [address] [address] aPTT (04/21/2019 2:49 AM FLEXO FOLDER GLUER OPERATOR) PTT 30.0 22.5 - 36.0 seconds [facility] Specimen Blood Performing Organization Address [facility] Centercode Phone Number [address] [address] CENTER Prothromin time/INR (04/21/2019 2:49 AM FLEXO FOLDER GLUER OPERATOR) Protime 13.8 11.9 - 14.2 seconds [facility] INR 1.1 <=5.9 [facility] Specimen Blood Narrative Performed At Effective 08/05/2018: PT Reference Range [facility] Change New: 11.9-14.2Previous: 11.7-14.7 RECOMMENDED COUMADIN/WARFARIN INR THERAPY RANGES STANDARD DOSE: 2.0-3.0Includes: PROPHYLAXIS for venous thrombosis, systemic embolization; TREATMENT for venous thrombosis and/or pulmonary embolus. HIGH RISK: Target INR is 2.5-3.5 for patients wiht mechanical heart valves. Performing Organization Address City/State/[facility] Cent[facility]ode Phone Number [address] [address] CENTER Fibrinogen (04/21/2019 2:49 AM FLEXO FOLDER GLUER OPERATOR) Fibrinogen 428 225 - 434 mg/dl [facility] Specimen Blood Performing Organization Address [facility] Centercode Phone Number [address] [address] [place] Hemoglobin A1c (04/21/2019 2:49 AM FLEXO FOLDER GLUER OPERATOR) Hemoglobin A1C 6.9 (H) 4.3 - 6.1 % [facility] Specimen Blood Performing Organization Address City/[facility] Centercode Phone Number [address] [address] CENTER after 11/30/2018 Insurance Payer Benefit Plan / Group Subscriber ID Type Phone A ddress MEDICARE MEDICARE A B xxxxxxxxxxx Medicare MCR SUPPLEMENT/INDIVIDUAL AARP/[facility] xxxxxxxxxxx [facility] Advance Directives For more information, please contact:[address] [phone] Code Status Date Activated Date Inactivated Comments Full Code 04/20/2019 10:48 PM 04/22/2019 3:56 PM This code status was determined by: Patient
--- OUTSIDE RECORDS SUMMARY | 2019-12-01 18:58 | XMS REPORT | Continuity of Care Document ---
:1930 Author Organization [facility] t Address [address] [place] [address] Care Team Providers Name Role Phone Pcp Primary Care Physician Unavailable Dionisio Stevenson MD Attending Clinician Billie Vale MD Attending Clinician [phone] BILLIE VALE Attending Clinician Unavail able BILLIE VALE Admitting Clinician Unavail able Payers Payer Name Policy Policy Number Effective Expiration Source Type Date Date MEDICAREMEDICARE A xxxxxxxxxxx [facility]xxx[facility] MCR xxxxxxxxxxx [facility] SUPPLEMENT/INDIVIDUALAARP/UNITE [facility] - [facility]xxx[facility] Problems Condition Condition Condition Status Onset Resolution Last Treating Co mments Source Name Details Category Date Date Treatment Clinician Date History of History of Disease Active [facility] cataract cataract 2-12 [facility] surgery surgery 00:00: Medical bilateral bilateral 00 Cent er HTN HTN Disease Active [facility] (hypertens (hypertens 2-12 Bonnie kes - ion) ion) 00:00: Medical [address] [place] [address] HLD HLD Disease Active [facility] (hyperlipi (hyperlipi 2-12 Bonnie kes - demia) demia) 00:00: Medical 00 Center CHF CHF Disease Active [facility] (congestiv (congestiv 2-12 Bonnie kes - e heart e heart 00:00: Medical failure) failure) Center IDDM IDDM Disease Active 2020-[address] [facility] [address] (insulin (insulin 2-12 [facility] - dependent dependent 00:00: [facility] diabetes diabetes 00 [place] mellitus) mellitus) Osteoarthr Osteoarthr Disease Active [facility] itis itis 2-12 [facility] - 00:00: Medical 00 [place] GERD GERD Disease Active [facility] (gastroeso (gastroeso 2-12 Bonnie kes - phageal phageal 00:00: Medical reflux reflux 00 [place] disease) disease) Diverticul Diverticul Disease Active [facility] itis itis 2-12 [facility] - 00:00: Medical 00 [place] H/O H/O Disease Active [facility] unilateral unilateral 2-12 Bonnie kes - modified modified 00:00: Medica l radical radical 00 Center mastectomy mastectomy , left , left 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, C4-C5 s, 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-11 [facility] - herniated herniated 00:00: [facility] disc disc 00 [place] Allergies, Adverse Reactions, Alerts Allergy Allergy Status Severity Reaction(s) Onset Inactive Treating Comm ents Source Name Type Date Date Clinician Penicill Propensi Active Rash [facility] ins ty to 04-20 [facility] - adverse 00:00: Medical reaction 00 [place] s Social History Social Habit Start Date Stop Date Quantity Comments Source History SDOH Alcohol [facility] - Std Drinks [facility] History SDOH Alcohol [facility] - Binge [facility] Sex Assigned At [facility] History SDOH Alcohol 2019-04-20 2019-04-[address] [facility] - Frequency 00:00:00 00:00:00 [facility] Smoking Status Start Date Stop Date Source Never smoker [facility] edical [place] Medications Ordered Filled Start Stop Current Ordering Indication Dosage Frequency Signature Comments Components Source Medication Medication Date Date Medication? Clinician (SIG) Name Name isosorbide Yes 60mg QD Take [address] mononitrate 2-08 by mouth Luke s - (IMDUR) 60 00:00: daily. Medic al MG 24 hr 00 [place] tablet montelukast Yes 10mg QD Take [address] (SINGULAIR) 2-08 by mouth Luke s - 10 mg 00:00: daily. Medical tablet 00 [place] carvedilol Yes 25mg QD Take [address] (COREG) 25 1-25 by mouth [facility] - MG tablet 00:00: daily. Medica l 00 [place] metFORMIN Yes 1000mg QD Take 1,[address] (GLUCOPHAGE 1-25 mg by [facility] - ) 1000 MG 00:00: mouth Medical tablet 00 daily. [place] simvastatin Yes 20mg QD Take [address] (ZOCOR) 20 1-25 by mouth [facility] - MG tablet 00:00: daily. Medica l [place] LANTUS Yes 22U Q.5D Inject [address] SOLOSTAR 1-23 Units [facility] - U-100 00:00: subcutaneo Medica l INSULIN 100 00 usly 2 Center unit/mL (3 (two) mL) InPn times daily. KLOR-CON Yes 10meq QD Take 10 [facility] M10 10 mEq 1-18 mEq by [facility] - tablet 00:00: mouth Medical 00 daily. [place] amLODIPine Yes 5mg QD Take [address] (NORVASC) 5 1-16 by mouth [facility] - MG tablet 00:00: daily. Medica l 00 [place] furosemide 2018-03 Yes 40mg Take [address] (LASIX) 40 1-30 by mouth [facility] - MG tablet 00:00: daily as Medi malu 00 needed. [place] omeprazole 2018-03 Yes 40mg QD Take [address] (PRILOSEC) 1-29 by mouth [facility] - 40 MG 00:00: daily. Medical capsule 00 Center Vital Signs Vital Name Observation Time Observation Value Comments Source Systolic blood 2019-04-22 11:00:00 149 mm[Hg] [facility] pressure [facility] Diastolic blood 2019-04-22 11:00:00 87 mm[Hg] [facility] pressure [facility] Heart rate 2019-04-22 11:00:00 61 /min [facility] Body temperature 2019-04-22 11:00:00 36.44 Marcela [facility] Respiratory rate 2019-04-22 11:00:00 16 /min [facility] Oxygen saturation in 2019-04-22 11:00:00 97 /min [facility] Arterial blood by Medical Ce nter Pulse oximetry Body height 2019-04-20 23:00:00 165.1 cm [facility] Body weight Measured 2019-04-20 23:00:00 79.7 kg [facility] BMI 2019-04-20 23:00:00 29.24 kg/m2 [facility] Procedures Procedure Date / Time Performing Clinician Source Performed RHYTHM STRIP - SCAN 2019-04-23 14:33:48 Provider, Default [facility] REPORT OF PROCEDURE - 2019-04-23 14:33:41 Provider, Default [facility] ENDOSCOPY SCAN [facility] TRANSFUSION SERVICE 2019-04-22 17:54:21 Provider, Default [facility] REPORT - SCAN [facility] POCT-GLUCOSE METER 2019-04-22 11:37:00 Nohemi Marin [facility] Ce nter POCT-GLUCOSE METER 2019-04-22 07:16:00 Nohemi Marin [facility] Ce nter CBC (HEMOGRAM ONLY) 2019-04-22 04:39:00 Patricia Hansen [facility] BASIC METABOLIC PANEL 2019-04-22 04:39:[address] [facility] (7) [facility] PHOSPHORUS 2019-04-22 04:39:00 Patricia Hansen [facility] MAGNESIUM 2019-04-22 04:39:00 Patricia Hansen [facility] POCT-GLUCOSE METER 2019-04-21 21:43:00 Nohemi Marin [facility] Ce nter POCT-GLUCOSE METER 2019-04-21 17:11:00 Nohemi Marin [facility] Ce nter MAGNESIUM 2019-04-21 15:50:00 Patricia Hansen [facility] POCT-GLUCOSE METER 2019-04-21 11:52:00 Nohemi Marin [facility] Ce nter URINALYSIS W/ REFLEX 2019-04-21 08:28:[address] [facility] URINE CULTURE [facility] POCT-GLUCOSE METER 2019-04-21 07:45:00 Nohemi Marin [facility] Ce nter ABORH, MANUAL 2019-04-21 06:07:00 Beth Bey [facility] POCT-GLUCOSE METER 2019-04-21 06:00:00 Nohemi Marin [facility] Ce nter XR CHEST 1 VIEW 2019-04-21 05:00:00 [facility] CBC (HEMOGRAM ONLY) 2019-04-21 02:49:00 Patricia Hansen [facility] BASIC METABOLIC PANEL 2019-04-21 02:49:00 Patricia Hansen [facility] (7) [facility] MAGNESIUM 2019-04-21 02:49:00 [facility] 2019-04-21 02:49:00 Patricia Hansen [facility] HEMOGLOBIN A1C 2019-04-21 02:49:00 Patricia Hansen [facility] PROTHROMBIN TIME/INR 2019-04-21 02:49:00 Patricia Hansen [facility] APTT 2019-04-21 02:49:00 Patricia Hansen [facility] FIBRINOGEN 2019-04-21 02:49:00 [facility]EN, 2019-04-21 02:49:00 [facility] PO[facility]-GLUCOSE METER 2019-04-21 00:13:00 Nohemi Marin [facility] Ce nter Encounters Start End Encounter Admission Attending Care Care Encounter Source Date/Time Date/Time Type Type Clinicians Facility Department ID 2019-05-18 2019-05-18 Office JUAN Stevenson [id number] 79 09:23:42 12:32:58 Visit Dion AMBULATOR [id number] Dionisio Donald [id number] Results Test Description Test Time Test Comments Results Result Comments Source POC-Glucose meter 2019-04-22 11:49:00 Test Item Value Reference Range Interpretation Comme nts POC-Glucose Meter (test code = 269 mg/dL 70-110 H : TESTED AT [facility] [address] [facility] 1538) [facility], [facility] 30: Central Supply Worker/Techni xiang ID = [id number] for ALBERT MARGARET H Lab Interpretation (test code = Abnormal 41622-6) [facility] [id number] 11:49:00 Test Item Value Reference Range Interpretation Comments POC-GLUCOSE METER 269 mg/dL 70-110 H : TESTED A T [facility] [address] (BEAKER) (test code = [facility] R [facility], 1538) [address]: Central Supply Worker/Techni xiang ID = [id number] for JONATHAN RICCIAH POCT-GLUCOSE [id number] 07:28:00 Test Item Value Reference Range Interpretation Comments POC-GLUCOSE METER 211 mg/dL 70-110 H : TESTED A T [facility] 67[address] (BEAKER) (test code = [facility], 1538) [address]: Central Supply Worker/Techni xiang ID = [id number] for MICHAEL FONG Basic Metabolic [id number] 05:32:00 Test Item Value Reference Range Interpretation Comments Sodium (test code = 137 meq/L 485-862 0793-2) Potassium (test code = 3.7 meq/L 3.5-5.1 2823-3) Chloride (test code = 106 meq/L 98-107 2075-0) CO2 (test code = 23 meq/L 22-29 8-9) BUN (test code = 17 mg/dL 7-21 3094-0) Creatinine (test code 0.65 mg/dL 0.57-1.25 = 2160-0) Glucose (test code = 248 mg/dL 70-105 H 2345-7) Calcium (test code = 9.3 mg/dL 8.4-10.2 77569-3) EGFR (test code = 86 mL/min/1.73 [place] [address]-3) NOT ACCURATE CREATININE CLEARANCE IN PREDICTING GLOMERULAR FILTRATION RATE . ESTIMATED GFR I S NOT APPLICABLE FOR DIALYSIS PATIENTS. BRENDA (test code = BRENDA) Central Supply Worker ID - JUANJOSE Lab Interpretation Abnormal (test code = 39317-3) [facility]2020-02-13 05:32:00 Test Item Value Reference Range Interpretation Comments Magnesium (test code = 1.6 mg/dL 1.6-2.6 30247-4) BRENDA (test code = BRENDA) Central Supply Worker [facility] Lab Interpretation (test Normal code = 38740-9) [facility] Center[facility]2020-02-13 05:32:00 Test Item Value Reference Range Interpretation Comments Phosphorus (test code = 2.0 mg/dL 2.3-4.7 L 2777-1) BRENDA (test code = BRENDA) Central Supply Worker [place] [facility] Lab Interpretation (test Abnormal code = 62098-2) [facility] CenterPHOSPHORUS2020-02-13 05:32:00 Test Item Value Reference Range Interpretation Comments PHOSPHORUS (BEAKER) (test code = 2.0 mg/dL 2.3-4.7 L 604) Central Supply Worker ID - [facility] [id number] 05:32:00 Test Item Value Reference Range Interpretation Comments MAGNESIUM (BEAKER) (test code = 1.6 mg/dL 1.6-2.6 627) Central Supply Worker ID - [facility] MBASIC METABOLIC [id number] 05:32:00 Test Item Value Reference Range Interpretation Comments SODIUM (BEAKER) 137 meq/L 136-145 (test code = 381) POTASSIUM (BEAKER) 3.7 meq/L 3.5-5.1 (test code = 379) CHLORIDE (BEAKER) 106 meq/L 98-107 (test code = 382) CO2 (BEAKER) (test 23 meq/L 22-29 code = 355) BLOOD UREA NITROGEN 17 mg/dL 7-21 (BEAKER) (test code = 354) CREATININE (BEAKER) 0.65 mg/dL 0.57-1.25 (test code = 358) GLUCOSE RANDOM 248 mg/dL 70-105 H (BEAKER) (test code = 652) CALCIUM (BEAKER) 9.3 mg/dL 8.4-10.2 (test code = 697) EGFR (BEAKER) (test 86 mL/min/1.73 ESTIMA FAROOQ GFR IS code = 1092) sq m NOT ACCURATE CREATININE CLEARANCE IN PREDICTING GLOMERULAR FILTRATION RATE . ESTIMATED GFR I S NOT APPLICABLE FOR DIALYSIS PATIEN TS. Central Supply Worker ID - JUANJOSE [facility] (Hemogram only)2019-04-22 05:26:00 Test Item Value Reference Range Interpretation Comments WBC (test code = 6690-2) 10.0 3.5- 10.5 K/L RBC (test code = 789-8) 3.69 3.93- 5.22 M/L L MCHC (test code = 786-4) 32.4 32.2- 35.5 GM/DL L Hematocrit (test code = 4544-3) 33.9 % 34.1-44.9 L MCV (test code = 787-2) 91.9 fL 79.4-94.8 MCH (test code = 785-6) 29.8 pg 25.6-32.2 RDW (test code = 788-0) 13.4 % 11.7-14.4 Platelets (test code = 777-3) 278 150- 450 K/CU MM MPV (test code = 32748-9) 11.2 fL 9.4-12.3 nRBC (test code = 413) 0 0- 0 /100 WBC Lab Interpretation (test code = Abnormal 13334-7) [facility] (HEMOGRAM ONLY)2019-04-22 05:26:00 Test Item Value Reference Range Interpretation Comments WHITE BLOOD CELL COUNT (BEAKER) 10.0 K/ L 3.5-10.5 (test code = 775) RED BLOOD CELL COUNT (BEAKER) 3.69 M/ L 3.93-5.22 L (test code = 761) HEMOGLOBIN (BEAKER) (test code = 11.0 GM/DL 11.2-15.7 L 410) HEMATOCRIT (BEAKER) (test code = 33.9 % 34.1-44.9 L 411) MEAN CORPUSCULAR VOLUME (BEAKER) 91.9 fL 79.4-94.8 (test code = 753) MEAN CORPUSCULAR HEMOGLOBIN 29.8 pg 25.6-32.2 (BEAKER) (test code = 751) MEAN CORPUSCULAR HEMOGLOBIN CONC 32.4 GM/DL 32.2-35.5 (BEAKER) (test code = 752) RED CELL DISTRIBUTION WIDTH 13.4 % 11.7-14.4 (BEAKER) (test code = 412) PLATELET COUNT (BEAKER) (test 278 K/CU MM 150-450 code = 756) MEAN PLATELET VOLUME (BEAKER) 11.2 fL 9.4-12.3 (test code = 754) NUCLEATED RED BLOOD CELLS 0 /100 WBC 0-0 (BEAKER) (test code = 413) POCT-GLUCOSE [id number] 21:55:00 Test Item Value Reference Range Interpretation Comments POC-GLUCOSE METER 295 mg/dL 70-110 H : Notified RN/MD: ([facility]) (test code = TESTED AT [facility] 67[address] 1538) [facility], [address]: Central Supply Worker/Techni xiang ID = [id number] for MICHAEL FONG POCT-GLUCOSE [id number] 17:23:00 Test Item Value Reference Range Interpretation Comments POC-GLUCOSE METER 288 mg/dL 70-110 H : TESTED A T [place] [address] ([facility]) (test code = [facility] Deepika [facility], 1538) [address]: Central Supply Worker/Techni xiang ID = [id number] for Hilary Martinez [id number] 16:24:00 Test Item Value Reference Range Interpretation Comments MAGNESIUM (BEAKER) (test code = 1.9 mg/dL 1.6-2.6 627) Central Supply Worker ID - GALAPHemoglobin [id number] 12:48:00 Test Item Value Reference Range Interpretation Comments Hemoglobin A1C (test code = 4548-4) 6.9 % 4.3-6.1 H Lab Interpretation (test code = Abnormal 25432-8) [facility] CenterHEMOGLOBIN [id number] 12:48:00 Test Item Value Reference Range Interpretation Comments HEMOGLOBIN A1C (BEAKER) (test code = 6.9 % 4.3-6.1 H 368) POCT-GLUCOSE [id number] 12:03:00 Test Item Value Reference Range Interpretation Comments POC-GLUCOSE METER 313 mg/dL 70-110 H : Notified RN/MD: (BEAKER) (test code = TESTED AT [facility] 3812 6024) [place], [address]: Central Supply Worker/Techni xiang ID = [id number] for Heydi Diaz Urinalysis w/Microscopic + Reflex to [id number] 11:27:00 Test Item Value Reference Range Interpretation Comments Color, UA (test code = Light Yellow 5778-6) Clarity, UA (test code = Clear 5767-9) Specific Quinby, UA (test 1.015 1.001-1.035 code = 5811-5) pH, UA (test code = 6.0 5.0-8.0 5803-2) Protein, UA (test code = 10 mg/dL Negative A 02783-1) Glucose, UA (test code = 300 mg/dL Negative A 365) Ketones, UA (test code = 100 mg/dL Negative A 2514-8) Bilirubin, UA (test code = Negative Negative 52840-6) Blood, UA (test code = Negative Negative 40911-6) Nitrite, UA (test code = Negative Negative 5802-4) Leukocytes, UA (test code Negative Negative = 5799-2) Urobilinogen, UA (test 0.2 mg/dL 0.2-1 code = 30053-8) RBC, UA (test code = <1 /HPF 09295-1) WBC, UA (test code = <1 /HPF 5821-4) Squam Epithel, UA (test <1 /HPF code = 59835-0) Specimen Source (test code = 2795) BRENDA (test code = BRENDA) Central Supply Worker ID - [auto]Central Supply Worker ID - tech Lab Interpretation (test Abnormal code = 30188-8) [facility] W/ REFLEX URINE [id number] 11:27:00 Test Item Value Reference Range Interpretation Comments COLOR (BEAKER) (test code = 470) Light Yellow CLARITY (BEAKER) (test code = Clear 469) SPECIFIC GRAVITY UA (BEAKER) 1.015 1.001-1.035 (test code = 468) PH UA (BEAKER) (test code = 467) 6.0 5.0-8.0 PROTEIN UA (BEAKER) (test code = 10 mg/dL Negative A 464) GLUCOSE UA (BEAKER) (test code = 300 mg/dL Negative A 365) KETONES UA (BEAKER) (test code = 100 mg/dL Negative A 371) BILIRUBIN UA (BEAKER) (test code Negative Negative = 462) BLOOD UA (BEAKER) (test code = Negative Negative 461) NITRITE UA (BEAKER) (test code = Negative Negative 465) LEUKOCYTE ESTERASE UA (BEAKER) Negative Negative (test code = 466) UROBILINOGEN UA (BEAKER) (test 0.2 mg/dL 0.2-1.0 code = 463) RBC UA (BEAKER) (test code = < /HPF 519) WBC UA (BEAKER) (test code = < /HPF 520) SQUAMOUS EPITHELIAL (BEAKER) < /HPF (test code = 516) SOURCE(BEAKER) (test code = 2795) Central Supply Worker ID - [auto]Central Supply Worker ID - techPOCT-GLUCOSE [id number] 07:57:00 Test Item Value Reference Range Interpretation Comments POC-GLUCOSE METER 220 mg/dL 70-110 H : Notified RN/MD: (DEMARCUS) (test code = TESTED AT [facility] 67[address] 1538) [facility], [address]: Central Supply Worker/Techni xiang ID = [id number] for St eptoe, Heydi RAD, CHEST, 1 VIEW, NON [id number] 06:56:00Reason for exam:->pre-opShould this be performed at the bedside?->YesFINAL REPORT History: Preoperative evaluation, surgery unspecified. Comparison: None. Findings: A single view of the chest is submitted. The cardiac silhouette is within normal limits for size. The aorta is elongated. The lung volumes are slightly low. There is mild central vascular prominence, which may be exaggerated by low lung volumes are reflect mild vascular congestion. There is no pneumothorax, large pleural effusion or acute bony abnormality. Surgical clips overliethe left axilla. Signed: Larry Yap Verified Date/Time: 04/21/2019 06:56:47 XR chest 1 view portable / [id number] 06:56:00 Interface, External Ris In - 04/21/2019 6:58 AM CSTFINAL REPORT History: Preoperative evaluation, surgery unspecified. Comparison: None. Findings: A single view of the chest issubmitted. The cardiac silhouette is within normal limits for size. The aorta is elongated. The lung volumes are slightly low. There is mild central vascular prominence, which may be exaggerated by low lung volumes are reflect mild vascular congestion. There is no pneumothorax, large pleural effusion or acute bony abnormality. Surgical clips overlie the left axilla. Signed: Larry Yap MDReport Verified Date/Time: 04/21/2019 06:56:47 [facility], [id number] 06:52:00 Test Item Value Reference Range Interpretation Comments ABO Grouping (test code = 2588) AB Rh Factor (test code = 2589) POS [facility]PO[facility]SE [id number] 06:12:00 Test Item Value Reference Range Interpretation Comments POC-GLUCOSE METER 217 mg/dL 70-110 H : TESTED A T [facility] (BEAKER) (test code = [place], 1538) [address]: Central Supply Worker/Techni xiang ID = [id number] for RA SURENDRA, KEN Type and screen, [id number] 04:17:00 Test Item Value Reference Range Interpretation Comments ABO/RH AUTOMATED (BEAKER) (test AB POSITIVE code = 2260) Ab Scrn (test code = 890-4) NEGATIVE [facility] CenterPHOSPHORUS2020-02-12 03:13:00 Test Item Value Reference Range Interpretation Comments PHOSPHORUS (BEAKER) (test code = 2.6 mg/dL 2.3-4.7 604) Central Supply Worker ID - [id number] 03:13:00 Test Item Value Reference Range Interpretation Comments MAGNESIUM (BEAKER) (test code = 1.5 mg/dL 1.6-2.6 L 627) Central Supply Worker ID - GALAPBASIC METABOLIC [id number] 03:13:00 Test Item Value Reference Range Interpretation Comments SODIUM (BEAKER) 137 meq/L 136-145 (test code = 381) POTASSIUM (BEAKER) 3.9 meq/L 3.5-5.1 (test code = 379) CHLORIDE (BEAKER) 106 meq/L 98-107 (test code = 382) CO2 (BEAKER) (test 22 meq/L 22-29 code = 355) BLOOD UREA NITROGEN 13 mg/dL 7-21 (BEAKER) (test code = 354) CREATININE (BEAKER) 0.59 mg/dL 0.57-1.25 (test code = 358) GLUCOSE RANDOM 216 mg/dL 70-105 H (BEAKER) (test code = 652) CALCIUM (BEAKER) 9.3 mg/dL 8.4-10.2 (test code = 697) EGFR (BEAKER) (test 96 mL/min/1.73 ESTIMA FAROOQ GFR IS code = 1092) sq m NOT ACCURATE CREATININE CLEARANCE IN PREDICTING GLOMERULAR FILTRATION RATE . ESTIMATED GFR I S NOT APPLICABLE FOR DIALYSIS PATIEN TS. Central Supply Worker ID - [id number] 03:11:00 Test Item Value Reference Range Interpretation Comments Fibrinogen (test code = 3255-7) 428 mg/dl 225-434 Lab Interpretation (test code = Normal 93653-3) [facility] CenteraPTT2020-02-12 03:11:00 Test Item Value Reference Range Interpretation Comments PTT (test code = 20537-6) 30.0 22.5- 36.0 seconds Lab Interpretation (test code = Normal 59512-7) [facility] CenterFIBRINOGEN2020-02-12 03:11:00 Test Item Value Reference Range Interpretation Comments FIBRINOGEN LEVEL (BEAKER) (test 428 mg/dl 225-434 code = 658) [id number] 03:11:00 Test Item Value Reference Range Interpretation Comments PARTIAL THROMBOPLASTIN TIME 30.0 seconds 22.5-36.0 (BEAKER) (test code = 760) Prothromin time/[id number] 03:10:00 Test Item Value Reference Range Interpretation Comments Protime (test code = 13.8 11.9- 14.2 5902-2) seconds INR (test code = 1.1 <=5.9 6301-6) BRENDA (test code = BRENDA) Effective 08/05/2018: PT Reference Range ChangeNew: 11.9-14.2 Previous: 11.7-14.7 RECOMMENDED COUMADIN/WARFARIN INR THERAPY RANGESSTANDARD DOSE: 2.0-3.0 Includes: PROPHYLAXIS for venous thrombosis, systemic embolization; TREATMENT for venous thrombosis and/or pulmonary embolus.HIGH RISK: Target INR is 2.5-3.5 for patients wiht mechanical heart valves. Lab Interpretation Normal (test code = 92970-0) [facility] CenterPROTHROMBIN TIME/[id number] 03:10:00 Test Item Value Reference Range Interpretation Comments PROTIME (BEAKER) (test code = 13.8 seconds 11.9-14.2 759) INR (BEAKER) (test code = 370) 1.1 <=5.9 Effective 08/05/2018: PT Reference Range ChangeNew: 11.9-14.2 Previous: 11.7- 14.7RECOMMENDED COUMADIN/WARFARIN INR THERAPY RANGESSTANDARD DOSE: 2.0-3.0 Includes: PROPHYLAXIS for venous thrombosis, systemic embolization; TREATMENT for venous thrombosis and/or pulmonary embolus.HIGH RISK: Target INR is2.5-3.5 for patients wiht mechanical heart valves.CBC (HEMOGRAM ONLY)2019-04-21 03:02:00 Test Item Value Reference Range Interpretation Comments WHITE BLOOD CELL COUNT (BEAKER) 8.3 K/ L 3.5-10.5 (test code = 775) RED BLOOD CELL COUNT (BEAKER) 3.88 M/ L 3.93-5.22 L (test code = 761) HEMOGLOBIN (BEAKER) (test code = 11.4 GM/DL 11.2-15.7 410) HEMATOCRIT (BEAKER) (test code = 35.4 % 34.1-44.9 411) MEAN CORPUSCULAR VOLUME (BEAKER) 91.2 fL 79.4-94.8 (test code = 753) MEAN CORPUSCULAR HEMOGLOBIN 29.4 pg 25.6-32.2 (BEAKER) (test code = 751) MEAN CORPUSCULAR HEMOGLOBIN CONC 32.2 GM/DL 32.2-35.5 (BEAKER) (test code = 752) RED CELL DISTRIBUTION WIDTH 13.3 % 11.7-14.4 (BEAKER) (test code = 412) PLATELET COUNT (BEAKER) (test 291 K/CU MM 150-450 code = 756) MEAN PLATELET VOLUME (BEAKER) 10.9 fL 9.4-12.3 (test code = 754) NUCLEATED RED BLOOD CELLS 0 /100 WBC 0-0 (BEAKER) (test code = 413) POCT-GLUCOSE [id number] 00:25:00 Test Item Value Reference Range Interpretation Comments POC-GLUCOSE METER 207 mg/dL 70-110 H : TESTED A T [facility] 6720 (BEAKER) (test code = [place], 1538) [address]: Central Supply Worker/Techni xiang ID = [id number] for KEN SANTOS
[2019-12-02] MEDS ORDERED: NA CHLORIDE 0.9% 500 ML ONE (00:14)
[2019-12-02] MEDS ORDERED: ACETAMINOPHEN 325 MG TABLET ONE (00:14)
[2019-12-02 00:28] LABS: Absolute Lymphocytes (CBC) 2.9 K/uL (0.7-4.9); Basophils % 0.3 % (0-1.3); Lymphocytes % 35.3 % (15.3-44.8); MPV 9.3 fL (7.6-11.3)
[2019-12-02 00:55] LABS: ALT/SGPT 16 U/L (12-78); AST/SGOT 13 U/L (15-37); Alkaline Phosphatase 71 U/L (45-117); BUN Blood Urea Nitrogen 12 mg/dL (7-18); Bicarbonate 27 mmol/L (21-32); Bilirubin Total 0.4 mg/dL (0.2-1.0); Glucose Level 89 mg/dL (74-106); Potassium 3.5 mmol/L (3.5-5.1); Protein, Total 7.8 g/dL (6.4-8.2); Sodium Level 140 mmol/L (136-145); Troponin (Emerg Dept Use Only) < 0.02 ng/mL (0.0-0.045)
[2019-12-02 01:13] LABS: Urine Blood NEGATIVE (NEG); Urine Glucose NEGATIVE (NEG); Urine Protein NEGATIVE (NEG); Urine Specific Gravity 1.015 (1.005-1.030)
--- NOTE | 2019-12-02 02:23 | ER ---
Nurse's Notes [facility] Name: Jaquelin Chiu Age: 89 yrs Sex: Female : 1930 Arrival Date: 12/01/2019 Time: 18:56 Bed 19 Private MD: Diagnosis: Headache;Type 1 diabetes mellitus Presentation: 11/30 19:22 Chief complaint: Patient states: right ear pain, and down into neck straight down from dm5 ear, cough when lying down, symptoms have been going on for a couple of days, cough and draining for longer than that. Denies fever. Coronavirus screen: Client denies travel out of the [place] in the last 14 days. congestion, cough unrelated to allergies, runny nose, Client presents with at least one sign or symptom that may indicate coronavirus-19. Standard/surgical mask placed on the client. Ebola Screen: Patient negative for fever greater than or equal to 101.5 degrees Fahrenheit, and additional compatible Ebola Virus Disease symptoms Patient denies exposure to infectious person. Patient denies travel to an Ebola-affected area in the 21 days before illness onset. No symptoms or risks identified at this time. Initial Sepsis Screen: Does the patient meet any 2 criteria? No. Patient's initial sepsis screen is negative. Does the patient have a suspected source of infection? No. Patient's initial sepsis screen is negative. Risk Assessment: Do you want to hurt yourself or someone else? Patient reports no desire to harm self or others. Onset of symptoms was November 2019. 19:22 Method Of Arrival: Ambulatory dm5 19:22 Acuity: KALLI 3 dm5 Historical: - Allergies: 19:27 PENICILLINS; dm5 - PMHx: 21:18 constipation; Diabetes - IDDM; High Cholesterol; Hypertension; ca1 - PSHx: 21:18 Appendectomy; Modified Mastectomy Left; Tonsillectomy; Cholecystectomy; Hysterectomy; ca1 Bilateral Total Knee; Laminectomy; - Immunization history:: Adult Immunizations up to date. - Social history:: Smoking status: Patient denies any tobacco usage or history of. Screenin:27 Abuse screen: Denies threats or abuse. Denies injuries from another. Nutritional ca1 screening: No deficits noted. Tuberculosis screening: No symptoms or risk factors identified. Fall Risk Ambulatory Aid- Crutches/Cane/Walker (15 pts). Assessment: 21:27 General: Appears in no apparent distress. comfortable, Behavior is calm, cooperative, ca1 appropriate for age. Pain: Complains of pain in right ear, right sternocleidomastoid, right posterior aspect of neck and right lateral aspect of neck Pain currently is 10 out of 10 on a pain scale. Pain began 1 day ago. Neuro: Level of Consciousness is awake, alert, obeys commands, Oriented to person, place, time, situation. Neuro: Reports headache frontal area. Cardiovascular: Heart tones S1 S2 present Capillary refill < 3 seconds Patient's skin is warm and dry. Respiratory: Airway is patent Respiratory effort is even, unlabored, Respiratory pattern is regular, symmetrical, Breath sounds are clear bilaterally. GI: Abdomen is round non-distended, Bowel sounds present X 4 quads. Abd is soft and non tender X 4 quads. : No signs and/or symptoms were reported regarding the genitourinary system. EENT: Tympanic membrane reddened on left ear Ear canal clear on left ear and right ear. Derm: Skin is intact, is healthy with good turgor, Skin is pink, warm \T\ dry. Musculoskeletal: Circulation, motion, and sensation intact. Capillary refill < 3 seconds. 22:06 Reassessment: US at bedside. ca1 23:00 Reassessment: No changes from previously documented assessment. Patient and/or family dm5 updated on plan of care and expected duration. Pain level reassessed. awaiting physician exam. 12/01 00:15 Reassessment: No changes from previously documented assessment. Patient and/or family dm5 updated on plan of care and expected duration. Pain level reassessed. medicated pt for pain. Per MD no obvious reason for abx at the time. will wait on admin of abx. Vital Signs: 11/30 19:22 BP 211 / 72; Pulse 59; Resp 17; Temp 97(O); Pulse Ox 98% on R/A; Weight 81.19 kg; dm5 Height 5 ft. 5 in. (165.10 cm); Pain 4/10; 21:29 BP 196 / 94; Pulse 56; Resp 16 S; Pulse Ox 96% on R/A; ca1 22:00 BP 193 / 59; Pulse 56; Resp 18; Pulse Ox 96% ; dm5 23:00 BP 172 / 59; Pulse 54; Pulse Ox 96% ; dm5 12/01 01:16 BP 178 / 54; Pulse 53; Pulse Ox 98% on R/A; dm5 02:00 BP 164 / 62; Pulse 52; Resp 20 S; Temp 98(O); Pulse Ox 98% on R/A; dm5 11/30 19:22 Body Mass Index 29.79 (81.19 kg, 165.10 cm) dm5 ED Course: 11/30 18:56 Patient arrived in ED. ag5 19:27 Triage completed. dm5 19:29 Arm band placed on Patient placed in waiting room. dm5 21:13 Lin Galaviz, RN is Primary Nurse. ca1 21:27 Patient has correct armband on for positive identification. Placed in gown. Bed in low ca1 position. Call light in reach. Side rails up X2. Pulse ox on. NIBP on. Warm blanket given. 21:53 Kwame Lipscomb MD is Attending Physician. shelby 22:29 Carotid Artery Bilateral US In Process Unspecified. EDMS 23:50 No apparent distress. pt to CT at this time. dm5 23:50 No provider procedures requiring assistance completed. Initial lab(s) drawn, by co, dm5 sent to lab. Inserted saline lock: 22 gauge in right wrist, using aseptic technique. 12/01 00:33 Chest Single View XRAY In Process Unspecified. EDMS 00:50 CT Head Brain wo Cont In Process Unspecified. EDMS 01:55 Urine Culture Sent. ds4 02:21 Jada Ryan MD is Referral Physician. shelby 03:02 IV discontinued, intact, bleeding controlled, No redness/swelling at site. Pressure dm5 dressing applied. Administered Medications: 00:10 Drug: NS 0.9% 500 ml Route: IV; Rate: bolus; Site: right wrist; dm5 00:50 Follow up: IV Status: Completed infusion; IV Intake: 500ml dm5 00:13 Drug: Tylenol 650 mg Route: PO; dm5 00:45 Follow up: Response: No adverse reaction; Pain is unchanged, physician notified dm5 02:05 Follow up: Response: No adverse reaction; Pain is unchanged, physician notified dm5 02:58 Not Given (not needed at this time): Rocephin 1 grams IV at per protocol once; Given dm5 slow IV push per pharmacy instructions Intake: 00:50 IV: 500ml; Total: 500ml. dm5 Outcome: 02:22 Discharge ordered by . shelby 03:02 Discharged to home ambulatory. dm5 03:02 Condition: good 03:02 Discharge instructions given to patient, family, Instructed on discharge instructions, follow up and referral plans. medication usage, Demonstrated understanding of instructions, follow-up care, medications, Prescriptions given X 2. 03:02 Patient left the ED. dm5 Signatures: Dispatcher [employer] EDMelanie Porter RN RN dm5 Anderson, Corey, MD MD cha Swanson, Donovan ds4 Lin Galaviz RN RN ca1 Ada Singletary ag5 Corrections: (The following items were deleted from the chart) 03:01 11/30 23:00 BP 172 / 59; Pulse 54bpm; Resp 18bpm; Pulse Ox 96%; dm5 dm5 12/01 03:01 01:16 BP 178 / 54; Pulse 53bpm; Pulse Ox 98% RA; dm5 dm5 03:01 02:00 BP 164 / 62; Pulse 52bpm; Resp 18bpm; Pulse Ox 98% RA; dm5 dm5
--- NOTE | 2019-12-02 02:23 | EDPHYS ---
Physician Documentation [facility] Name: Jaquelin Chiu Age: 89 yrs Sex: Female : 1930 Arrival Date: 12/01/2019 Time: 18:56 Bed 19 Private MD: Kwame Vargas HPI: 11/30 23:24 This 89 yrs old Female presents to ER via Ambulatory with complaints of Ear shelby Pain. 23:24 The patient presents with drainage, a fullness, pain. The complaints affect the right shelby ear. Onset: The symptoms/episode began/occurred 1 day(s) ago. Modifying factors: The symptoms are alleviated by nothing, the symptoms are aggravated by nothing. Associated signs and symptoms: The patient has no apparent associated signs or symptoms. The patient has not experienced similar symptoms in the past. Historical: - Allergies: 19:27 PENICILLINS; dm5 - PMHx: 21:18 constipation; Diabetes - IDDM; High Cholesterol; Hypertension; ca1 - PSHx: 21:18 Appendectomy; Modified Mastectomy Left; Tonsillectomy; Cholecystectomy; Hysterectomy; ca1 Bilateral Total Knee; Laminectomy; - Immunization history:: Adult Immunizations up to date. - Social history:: Smoking status: Patient denies any tobacco usage or history of. ROS: 23:25 Constitutional: Negative for fever, chills, and weight loss, Eyes: Negative for injury, shelby pain, redness, and discharge, Neck: Negative for injury, pain, and swelling, Cardiovascular: Negative for chest pain, palpitations, and edema, Respiratory: Negative for shortness of breath, cough, wheezing, and pleuritic chest pain, Abdomen/GI: Negative for abdominal pain, nausea, vomiting, diarrhea, and constipation, Back: Negative for injury and pain, : Negative for injury, bleeding, discharge, and swelling, MS/Extremity: Negative for injury and deformity, Skin: Negative for injury, rash, and discoloration, Neuro: Negative for headache, weakness, numbness, tingling, and seizure. 23:25 ENT: Positive for ear pain, nasal discharge. 12/01 02:21 Cardiovascular: Negative for chest pain, edema, palpitations, paroxysmal nocturnal shelby dyspnea. Exam: 11/30 23:25 Constitutional: This is a well developed, well nourished patient who is awake, alert, shelby and in no acute distress. Head/Face: Normocephalic, atraumatic. Eyes: Pupils equal round and reactive to light, extra-ocular motions intact. Lids and lashes normal. Conjunctiva and sclera are non-icteric and not injected. Cornea within normal limits. Periorbital areas with no swelling, redness, or edema. ENT: Nares patent. No nasal discharge, no septal abnormalities noted. Tympanic membranes are normal and external auditory canals are clear. Oropharynx with no redness, swelling, or masses, exudates, or evidence of obstruction, uvula midline. Mucous membranes moist. Neck: Trachea midline, no thyromegaly or masses palpated, and no cervical lymphadenopathy. Supple, full range of motion without nuchal rigidity, or vertebral point tenderness. No Meningismus. Chest/axilla: Normal chest wall appearance and motion. Nontender with no deformity. No lesions are appreciated. Cardiovascular: Regular rate and rhythm with a normal S1 and S2. No gallops, murmurs, or rubs. Normal PMI, no JVD. No pulse deficits. Respiratory: Lungs have equal breath sounds bilaterally, clear to auscultation and percussion. No rales, rhonchi or wheezes noted. No increased work of breathing, no retractions or nasal flaring. Abdomen/GI: Soft, non-tender, with normal bowel sounds. No distension or tympany. No guarding or rebound. No evidence of tenderness throughout. Back: No spinal tenderness. No costovertebral tenderness. Full range of motion. Skin: Warm, dry with normal turgor. Normal color with no rashes, no lesions, and no evidence of cellulitis. MS/ Extremity: Pulses equal, no cyanosis. Neurovascular intact. Full, normal range of motion. Neuro: Awake and alert, GCS 15, oriented to person, place, time, and situation. Cranial nerves II-XII grossly intact. Motor strength 5/5 in all extremities. Sensory grossly intact. Cerebellar exam normal. Normal gait. Psych: Awake, alert, with orientation to person, place and time. Behavior, mood, and affect are within normal limits. ENT: TM's: are normal, no evidence of bulging, no dullness, no erythema, no fluid levels, no hemotympanum, no rupture, normal bony landmarks, no acute changes. 12/01 01:52 ECG was reviewed by the Attending Physician. shelby Vital Signs: 11/30 19:22 BP 211 / 72; Pulse 59; Resp 17; Temp 97(O); Pulse Ox 98% on R/A; Weight 81.19 kg; dm5 Height 5 ft. 5 in. (165.10 cm); Pain 4/10; 21:29 BP 196 / 94; Pulse 56; Resp 16 S; Pulse Ox 96% on R/A; ca1 22:00 BP 193 / 59; Pulse 56; Resp 18; Pulse Ox 96% ; dm5 23:00 BP 172 / 59; Pulse 54; Pulse Ox 96% ; dm5 12/01 01:16 BP 178 / 54; Pulse 53; Pulse Ox 98% on R/A; dm5 02:00 BP 164 / 62; Pulse 52; Resp 20 S; Temp 98(O); Pulse Ox 98% on R/A; dm5 11/30 19:22 Body Mass Index 29.79 (81.19 kg, 165.10 cm) dm5 MDM: 11/30 21:53 Patient medically screened. [facility] 23:26 Differential diagnosis: otitis media, otitis externa, acute otalgia, serotympanum. Data [facility] reviewed: vital signs, nurses notes, lab test result(s), EKG, radiologic studies, doppler, plain films. Data interpreted: quality assurance monitor body: rate is 56 beats/min, rhythm is regular, Pulse oximetry: on room air is 96 %. Test interpretation: by ED physician or midlevel provider: ECG, plain radiologic studies. Counseling: I had a detailed discussion with the patient and/or guardian regarding: the historical points, exam findings, and any diagnostic results supporting the discharge/admit diagnosis, lab results, radiology results, the need for outpatient follow up, for definitive care, an ENT specialist. 11/30 23:23 Order name: CBC with Diff; Complete Time: 00:41 [facility] 11/30 23:23 Order name: Comprehensive Metabolic Panel; Complete Time: 01:30 shelby 11/30 21:36 Order name: Carotid Artery Bilateral US snw 11/30 23:24 Order name: Troponin (emerg Dept Use Only); Complete Time: 01:30 shelby 12/01 00:05 Order name: Urine Dipstick--Ancillary (enter results); Complete Time: 01:30 mw2 12/01 01:31 Order name: Urine Culture [facility] 11/30 23:23 Order name: CT Head Brain wo Cont [facility] 11/30 23:24 Order name: EKG; Complete Time: 23:24 [facility] 11/30 23:24 Order name: EKG - Nurse/Tech; Complete Time: 01:54 [facility] 11/30 23:24 Order name: Chest Single View XRAY [facility] EC/24 01:52 Rate is 54 beats/min. Rhythm is regular. QRS [place] is Normal. MI interval is normal. QRS shelby interval is normal. QT interval is normal. No Q waves. T waves are Normal. ST Segment is depressed in leads II, III. Clinical impression: NSR w/ Non-specific ST/T Changes. Interpreted by me. Reviewed by me. Administered Medications: 00:10 Drug: NS 0.9% 500 ml Route: IV; Rate: bolus; Site: right wrist; dm5 00:50 Follow up: IV Status: Completed infusion; IV Intake: 500ml dm5 00:13 Drug: Tylenol 650 mg Route: PO; dm5 00:45 Follow up: Response: No adverse reaction; Pain is unchanged, physician notified dm5 02:05 Follow up: Response: No adverse reaction; Pain is unchanged, physician notified dm5 02:58 Not Given (not needed at this time): Rocephin 1 grams IV at per protocol once; Given dm5 slow IV push per pharmacy instructions Disposition: 12/02/19 02:22 Discharged to Home. Impression: Headache, Type 1 diabetes mellitus. - Condition is Stable. - Discharge Instructions: General Headache Without Cause, General Headache Without Cause, [id number], Type 1 Diabetes Mellitus, Self Care, Adult, Type 1 Diabetes Mellitus, Diagnosis, Adult, [id number]. - Prescriptions for Keflex 500 mg Oral Capsule - take 1 capsule by ORAL route every 6 hours for 7 days; 28 capsule. Tylenol- Codeine #3 300-30 mg Oral Tablet - take 1 tablet by ORAL route every 6 hours As needed; 20 tablet. - Medication Reconciliation Form, Thank You Letter, Antibiotic Education, Prescription Opioid Use form. - Follow up: Private Physician; When: 2 - 3 days; Reason: Recheck today's complaints, Continuance of care, Re-evaluation by your physician. Follow up: Jada Ryan; When: 2 - 3 days; Reason: Recheck today's complaints, Continuance of care, Re-evaluation by your physician. - Problem is new. - Symptoms have improved. Signatures: Dispatcher [employer] Melanie Maza, LINDA RN dm5 Kwame Lipscomb MD MD cha Acob, Cheryl, RN RN ca1 Corrections: (The following items were deleted from the chart) 03:02 02:22 12/02/2019 02:22 Discharged to Home. Impression: Headache; Type 1 diabetes dm5 mellitus. Condition is Stable. Discharge Instructions: General Headache Without Cause, General Headache Without Cause, [id number], Type 1 Diabetes Mellitus, Self Care, Adult, Type 1 Diabetes Mellitus, Diagnosis, Adult, [id number]. Prescriptions for Keflex 500 mg Oral Capsule - take 1 capsule by ORAL route every 6 hours for 7 days; 28 capsule, Tylenol-Codeine #3 300-30 mg Oral Tablet - take 1 tablet by ORAL route every 6 hours As needed; 20 tablet. and Forms are Medication Reconciliation Form, Thank You Letter, Antibiotic Education, Prescription Opioid Use. Follow up: Private Physician; When: 2 - 3 days; Reason: Recheck today's complaints, Continuance of care, Re-evaluation by your physician. Follow up: Jada Ryan; When: 2 - 3 days; Reason: Recheck today's complaints, Continuance of care, Re-evaluation by your physician. Problem is new. Symptoms have improved. shelby
[2019-12-02 03:17] VITALS: O2SAT 98
[2019-12-02 03:18] VITALS: BP 164/62; TEMP 98
--- NOTE | 2019-12-02 08:07 | RAD REPORT ---
EXAM DESCRIPTION: US - CP - 12/01/2019 10:29 pm CLINICAL HISTORY: PAIN COMPARISON: Head C Spine Mpr Wo Con dated 04/20/2019 TECHNIQUE: Real-time sonographic evaluation of bilateral carotid and vertebral systems was performed . Garcia scale and Doppler interrogation were performed with waveform tracing bilaterally. FINDINGS: Normal high resistance waveforms are noted in both external carotid arteries. The common c arotid arteries and internal carotid arteries show normal low resistance waveforms. Mild plaquing in the bilateral bulb, ICA and ECA vessels. On visual inspection no significant luminal narrowing. No dissection changes. Peak systolic and end diastolic velocity values and the ICA/CCA ra tios are in the non-hemodynamically significant range. Antegrade flow seen in both vertebral arteries. Velocity values and ratios were recorded and are retained in the patient's imaging records. IMPRESSION: Mild bilateral atherosclerotic changes without significant luminal narrowing. No evidence of a hemodynamically significant stenosis.
--- NOTE | 2019-12-02 08:33 | RAD REPORT ---
EXAM DESCRIPTION: RAD - Chest Single View - 12/02/2019 12:33 am CLINICAL HISTORY: COUGH COMPARISON: April 2019 TECHNIQUE: AP portable chest image was obtained 12/02/2019 12:33 am . FINDINGS: Chronic interstitial opacification present. No new mass or consolidation. Numerous surgica l clips overlie the left axilla. Patient may be status post left mastectomy. Chest soft tissues are a symmetric. Heart and vasculature are normal. No measurable pleural effusion and no pneumothorax. No acute bony abnormality seen. No acute aortic findings suspected. IMPRESSION: Chronic chest findings as detailed. No significant change from April study.
--- NOTE | 2019-12-02 08:43 | EKG ---
Test Date: 2019-12-02 Test Time: 01:46:53 Gang Bore Operator: SIMA MEASUREMENT RESULTS: Intervals: Rate: 54 UT: 214 QRSD: 102 QT: 486 QTc: 460 [place]: P: 60 UT: 214 QRS: 12 T: 34 INTERPRETIVE STATEMENTS: Sinus bradycardia with 1st degree AV block Cannot rule out Anterior infarct, age undetermined Abnormal ECG Compared to ECG 04/20/2019 09:59:25 Myocardial infarct finding now present Electronically Signed On 12-02-19 08:43:01 CDT by Milan Tuttle
--- NOTE | 2019-12-02 10:06 | RAD REPORT ---
EXAM DESCRIPTION: CT - Head Brain Wo Cont - 12/02/2019 6:37 am CLINICAL HISTORY: HEADACHE COMPARISON: None. TECHNIQUE: Head/brain axial images acquired without contrast. Coronal and sagittal reformats created . Exam performed according to departmental dose-optimization program which includes automated exposur e control, adjustment of mA and/or kV according to patient size, and/or use of iterative reconstructi on technique. FINDINGS: No midline shift, mass effect, or intracranial hemorrhage. Mild hypodense periventricular cerebral white matter abnormality. CSF spaces appear overall mildly enlarged likely representing age-appropriate cerebral volume loss. Calcified atherosclerotic intracranial internal carotid arteries. Both lenses show postsurgical changes. IMPRESSION: Mild cerebral white matter disease most likely represents chronic small vessel ischemia. Electronically signed by: Nilton Patel MD 12/02/2019 12:57 AM CDT Due to temporary technical issues with the PACS/Fluency reporting system, reports are being signed by the in house radiologist without review as a courtesy to ensure prompt reporting. The interpreting r adiologist is fully responsible for the content of the report.
== END 2019-12-02 03:02 | disposition home or self-care (01) ==
LOC: ER 18:54
DX: R51 Headache (principal); E10.9 Type 1 diabetes mellitus without complications; I10 Essential (primary) hypertension; Z88.0 Allergy status to penicillin; Z90.12 Acquired absence of left breast and nipple
CPT/HCPCS: 93005; 87088; 85025; 87086; 36415; 81003; 84484; 80053; 70450; 71045; 93880; 96360; 99284; J7040